=== PATIENT | male | born 1950 | race Caucasian/White ===

== ENCOUNTER → 2018-08-23 10:19 | Outpatient (CLI) | payer OTHER, SELFPAY ==
[2018-08-23 11:50] LABS: PSA,Total- Diagnostic 1.21 ng/mL (0.0-4.0)
== END ==
PROVIDERS: Referring Provider Nurse Practitioner Adult Health; Visit Provider Nurse Practitioner Adult Health
DX: N40.2 Nodular prostate without lower urinary tract symptoms (principal); N40.1 Benign prostatic hyperplasia with lower urinary tract symptoms
CPT/HCPCS: 36415; 84153

== ENCOUNTER → 2018-08-30 06:27 | Outpatient (CLI) | payer OTHER, SELFPAY ==
[2018-08-29 11:03] LABS: Creatinine, Serum 1.12 mg/dL (0.70-1.30); EST Glomerular Filtration Rate 69 mL/min (>60); Est Glom Filt Rate - Afr Amer 84 mL/min (>60)
--- NOTE | 2018-08-30 06:33 | MRI_ITS ---
STUDY: MR PELVIS WITH AND WITHOUT CONTRAST (PROSTATE) REASON FOR EXAM: Male, 68 years old. Nodular prostate, urinary flow problems TECHNIQUE: Standardized multiparametric prostate MRI with T1, T2, DWI/ADC sequences were obtained in 3 orthogonal planes, and dynamic contrast enhancement sequences. 10 ml of Gadavist contrast material was administered intravenously for the contrast portion of the examination. COMPARISON: None. FINDINGS: The prostate volume measures 35 mm3. The contours of the prostate gland are smooth. There is not mass effect on the bladder base. The transition zone is heterogenous. PI-RADS DWI score 2 - Hypointense within a BPH nodule on ADC. PI-RADS T2W score 2 - Circumscribed hypointense or heterogeneous encapsulated nodule(s) (BPH). Contrast enhancement (-) No early enhancement, or; diffuse enhancement so that margins do not correspond to a finding on T2WI and/or DWI, or; focal enhancement corresponding to a lesion demonstrating features of BPH on T2WI. The peripheral zone is heterogenous. PI-RADS DWI score 2 - Indistinct mildy hypointense on ADC. PI-RADS T2W score 2 - Linear, wedge-shaped, or diffuse mild hypointensity, usually with indistinct margin. Contrast enhancement (-) No early enhancement, or; diffuse enhancement so that margins do not correspond to a finding on T2WI and/or DWI, or; focal enhancement corresponding to a lesion demonstrating features of BPH on T2WI. The seminal vesicles demonstrate normal margins and T2 signal pattern. No mass lesion or invasion depicted. The rectoprostatic angles are normal. Urinary bladder is nondistended with diffuse circumferential wall thickening (artifactual nondistention versus true wall thickening). The vascular structures of the are normal. There is a small left and moderate right hydrocele, partially visualized. The visualized hollow viscus structures are normal. No bone marrow edema or mass lesion depicted. MRI/Pelvis W/WO Contrast IMPRESSION: 1. PIRADS v2 2015 -- 2 - Low (clinically significant cancer is unlikely). 2. Central gland BPH nodules. 3. Right larger than left hydrocele. 4. Circumferential wall thickening may be artifact of nondistention versus true wall thickening (muscular hyperplasia, cystitis or other etiology). Electronically Signed: Migue Jin MD at 8:55 EST , Service support ,
== END ==
PROVIDERS: Referring Provider Nurse Practitioner Adult Health; Visit Provider Nurse Practitioner Adult Health
DX: N40.2 Nodular prostate without lower urinary tract symptoms (principal)
CPT/HCPCS: 72197; 82565; A9585

== ENCOUNTER → 2018-09-19 16:51 | Outpatient (CLI) | payer OTHER, SELFPAY ==
[2016-01-02 02:44] VITALS: BMI 32.8
--- NOTE | 2018-09-19 08:00 | PROSBIL_PTH ---
PATIENT: ROC PERLA LOC: [facility] U#:[id number] AGE/SX: 75/M ROOM: RE09/19/[address]: Dr. Abdiaziz Sosa MD : 1950 BED: DIS: SPEC #: [id number] RECD: 09/19/18 13:00 STATUS: BRIAN CURT #: [id number] LEXIE: 09/19/18 08:[address]: Abdiaziz Sosa DEPT: SURGICAL PATHOLOGY RECD BY: Yajaira Atwood ENTERED: 09/20/18 11:18 SP TYPE: PROST BX SANCHO DR: Carmen Primary Care Phys Tissues: A - PROSTATE RIGHT B - PROSTATE RIGHT C - PROSTATE RIGHT D - PROSTATE LEFT E - PROSTATE LEFT F - PROSTATE LEFT Procedures: PROSTATE BX HEADER OPERATION: Prostate biopsy PRE-OP DIAGNOSIS: Elevated PSA TISSUE SUBMITTED: A - Right apex, B - Right mid, C - Right base, D - Left apex, E - Left mid, F - Left base MICROSCOPIC DIAGNOSIS A. Right prostate, apex, core biopsy: Focal high-grade prostatic intraepithelial neoplasia (HGPIN). Chronic inflammation. B. Right prostate, mid, core biopsy: Prostatic tissue, negative for malignancy. Acute and chronic inflammation. C. Right prostate, base, core biopsy: Prostatic tissue, negative for malignancy. Chronic inflammation. D. Left prostate, apex, core biopsy: Prostatic tissue, negative for malignancy. Moderate acute and chronic inflammation. E. Left prostate, mid, core biopsy: Prostatic tissue, negative for malignancy. Focal moderate acute and chronic inflammation, histiocytic reaction and foreign body giant cell reaction. F. Left prostate, base, core biopsy: Prostatic tissue, negative for malignancy. Acute and chronic inflammation and histiocytic reaction. SJ:rg 09/21/18 COMMENT Case has been reviewed in consultation with Dr. Clark who concurs with the above diagnosis. IDC:AM MICROSCOPIC DESCRIPTION Slides are reviewed. GROSS DESCRIPTION A - Received is one container designated prostate, right apex. The specimen consists of two elongated fragments of light hendrickson-white soft tissue measuring 0.8 and 1.3 cm in length and 0.1 cm in diameter. The specimen is totally submitted in one cassette. B - Received is one container designated prostate, right mid. The specimen consists of two elongated fragments of light hendrickson-white soft tissue measuring 1 and 1.2 cm in length and 0.1 cm in diameter. The specimen is totally submitted in one cassette. C - Received is one container designated prostate, right base. The specimen consists of two elongated fragments of light hendrickson-white soft tissue each measuring 1.3 cm in length and 0.1 cm in diameter. The specimen is totally submitted in one cassette. D - Received is one container designated prostate, left apex. The specimen consists of two elongated fragments of light hendrickson-white soft tissue each measuring 1.5 cm in length and 0.1 cm in diameter. The specimen is totally submitted in one cassette. E - Received is one container designated prostate, left mid. The specimen consists of two elongated fragments of light hendrickson-white soft tissue each measuring 2 cm in length and 0.1 cm in diameter. The specimen is totally submitted in one cassette. F - Received is one container designated prostate, left base. The specimen consists of two elongated fragments of light hendrickson-white soft tissue measuring 0.5 and 2 cm in length and 0.1 cm in diameter. The specimen is totally submitted in one cassette. / SJ:rg 09/20/18 TC:3 CPT: 91713 x6
== END ==
PROVIDERS: Referring Provider Urology; Visit Provider Urology
DX: R97.20 Elevated prostate specific antigen [PSA] (principal)
CPT/HCPCS: 88305; G0416

== ENCOUNTER 2021-10-02 08:43 | Outpatient (CLI) | payer MEDICARE, SELFPAY ==
[2021-10-02 10:06] LABS: PSA,Total - Annual Screen 0.28 ng/mL (0.00-4.00)
== END 2021-10-02 23:59 | disposition home or self-care (01) ==
LOC: LAB 08:46
PROVIDERS: PCP Family Medicine; Referring Provider Urology; Visit Provider Urology
DX: Z12.5 Encounter for screening for malignant neoplasm of prostate (principal)
CPT/HCPCS: 36415; 84153; G0103

== ENCOUNTER → 2022-01-20 | Outpatient (CLI) | payer MEDICARE, SELFPAY ==
--- NOTE | 2022-01-20 08:32 | EKG12_ITS ---
Test Reason : CHEST PAIN Blood Pressure : / mmHG Vent. Rate : 067 BPM Atrial Rate : 067 BPM P-R Int : 154 ms QRS Dur : 074 ms QT Int : 376 ms P-R-T Axes : -05 -01 030 degrees QTc Int : 397 ms Normal sinus rhythm Normal ECG Confirmed by SARI VERDUGO, MAYRA ([id number]), editor in chief newspaper ALEXANDREA FRAUSTO ([id number]) on 01/21/2022 12:44:07 PM Referred By: Angelica Sandy Confirmed By:MAYRA GUO MD
--- NOTE | 2022-01-20 08:35 | RAD_ITS ---
EXAM: XR CHEST, 2 VIEWS CLINICAL INDICATION: Dyspnea on exertion, chest tightness TECHNIQUE: Frontal and lateral views of the chest. This report was created using [employer] report generation technology. COMPARISON: None. FINDINGS: LUNGS AND PLEURAL SPACES: There is right middle lobe airspace disease. No pneumothorax. No effusion. HEART: Unremarkable. Cardiac silhouette not enlarged. MEDIASTINUM: Central airways and mediastinal contour are unremarkable. BONES/JOINTS: Unremarkable. SOFT TISSUES: Unremarkable. RAD/Chest PA and Lateral IMPRESSION: Right middle lobe airspace disease which may represent atelectasis or early pneumonia. Electronically Signed: Qamar Curtis MD at 2:19 EDT ,
[2022-01-20 09:18] LABS: Absolute Lymphocyte Count 1.49 X10^3/uL (0.83-4.51); Absolute Neutrophil Count 3.8 X10^3/uL (2.0-7.7); Basophil# 0.04 X10^3/uL; Basophil% 0.6 % (0-1); Eosinophils% 3.2 % (0-5); Hematocrit 39.7 % (40-54); Hemoglobin 13.3 g/dL (13.0-16.5); Lymphocyte # 1.49 X10^3/ul (0.83-4.51); Lymphocyte % 23.9 % (19-41); Mean Corp Hgb Conc 33.5 g/dL (32-36); Mean Corpuscular Hgb 32.4 pg (27.0-32.0); Mean Corpuscular Volume 96.6 fL (80-94); Mean Platelet Vol. 8.9 fl (6.2-12.0); Monocyte# 0.71 X10^3/uL; Monocyte% 11.4 % (0-10); NRBC Flagged by Analyzer 0 % (0-5); Neutrophil # 3.79 X10^3/uL (2.7-7.7); Neutrophil % 60.7 % (47-70); Platelet Count 233 K/mm3 (150-450); RBC Distribution Width CV 12.1 % (11.6-14.6); RBC Distribution Width SD 42.9 fl (35.1-43.9); Red Blood Count 4.11 M/mm3 (4.6-6.2); White Blood Count 6.2 K/mm3 (4.4-11.0)
[2022-01-20 10:00] LABS: Vitamin D,25 Hydroxy 43.2 ng/mL
[2022-01-20 10:04] LABS: AST(SGOT) 21 U/L (15-37); Alanine Aminotransfer ALT/SGPT 21 U/L (16-61); Albumin, Serum 3.6 g/dL (3.2-5.0); Alkaline Phosphatase 82 U/L (45-117); Anion Gap 4 (5-15); BUN 16 mg/dL (7-18); BUN/Creat Ratio 16.7 RATIO (10-20); Chloride 107 mmol/L (98-107); Cholesterol 150 mg/dL (200); Creatinine, Serum 0.96 mg/dL (0.70-1.30); EST Glomerular Filtration Rate 82 mL/min (>60); Est Glom Filt Rate - Afr Amer 99 mL/min (>60); Globulin 3.6 g/dL (2.2-4.2); Glucose 93 mg/dL (74-106); High Density Lipoprotein 42 mg/dL; Potassium 4.2 mmol/L (3.5-5.1); Protein, Total 7.2 g/dL (6.4-8.2); Sodium Level 139 mmol/L (136-145); Thyroid Stim Hormone (TSH) 1.92 uIU/mL (0.358-3.74); Triglycerides 189 mg/dL; Very Low Density Lipoprotein 38 mg/dL (5-40)
== END | disposition home or self-care (01) ==
PROVIDERS: PCP Internal Medicine; Referring Provider Internal Medicine; Visit Provider Internal Medicine
DX: R07.89 Other chest pain (principal); Z76.89 Persons encountering health services in other specified circumstances; R53.83 Other fatigue; R06.09 Other forms of dyspnea; M17.0 Bilateral primary osteoarthritis of knee; E55.9 Vitamin D deficiency, unspecified
CPT/HCPCS: 36415; 71046; 80053; 80061; 82306; 84443; 85025; 93005

== ENCOUNTER → 2022-01-20 | Outpatient (CLI) | payer MEDICARE, SELFPAY | END | disposition home or self-care (01) | LOC: CVS 08:34 | PROVIDERS: PCP Internal Medicine; Referring Provider Internal Medicine; Visit Provider Internal Medicine | DX: R07.89 Other chest pain (principal); R06.00 Dyspnea, unspecified; R53.83 Other fatigue ==

== ENCOUNTER → 2022-02-17 | Outpatient (CLI) | payer MEDICARE, SELFPAY ==
--- NOTE | 2022-02-17 16:22 | STRESSREP_ITS ---
Stress Test Report Date: 02-17-2022 Procedure: Exercise tolerance test/imaging study Indications: Shortness of breath/dyspnea on exertion; chest tightness; fatigue Consent: Per the patient Procedure: The patient exercised on a West protocol for 3 minutes completing Stage I achieving a peak heart rate of 146 bpm (98% predicted maximal heart rate) with a peak blood pressure 160/78 mmHg and a peak MET capacity of 4 METs. The baseline ECG demonstrated normal sinus rhythm. The peak exercise ECG demonstrated somatic/motion artifact with no obvious ECG changes. There was a rare PAC during recovery. The functional capacity was considered decreased. There was no complaint of chest discomfort during exercise or recovery. The examination was discontinued secondary to dyspnea. Impression: 1. Technically adequate (percent predicted maximal heart rate greater than 85%) exercise tolerance test 2. Peak exercise ECG with somatic/motion artifact with no obvious ECG changes 3. There was a rare PAC during recovery 4. Nuclear images pending Myocardial perfusion imaging study: Technique: The patient was injected with 11.6 mCi of technetium 99m Cardiolite and subsequently rest SPECT Cardiolite nuclear imaging was obtained in the horizontal long, vertical long, and short axis views. The patient exercised on a West protocol for 3 minutes completing Stage I achieving a peak heart rate of 146 bpm (98% predicted maximal heart rate) with a peak blood pressure 160/78 mmHg and a peak MET capacity of 4 METs. The patient was injected with 34.8 mCi of technetium 99m Cardiolite and subsequently stress SPECT Cardiolite nuclear imaging was obtained in the horizontal long, vertical long, and short axis views. A gated Cardiolite study at peak stress was obtained. Interpretation: Rest and stress SPECT Cardiolite nuclear imaging status post realignment, normalization, and attenuation correction, demonstrates the appearance of relative uniform tracer uptake and myocardial perfusion appearing within normal limits. There is end systolic thickening and brightening. The gated Cardiolite study demonstrates myocardial thickening and inward wall motion. The reported LVEF is 69%. Impression: 1. Rest and stress SPECT Cardiolite nuclear imaging demonstrate relative uniform tracer uptake and myocardial perfusion appearing within normal limits. 2. The gated Cardiolite study reports an LVEF of 69%. This note was generated with [employer] software. It may contain incorrect words, spelling, and punctuation that were not noted in checking the note before signing.
== END | disposition home or self-care (01) ==
PROVIDERS: PCP Internal Medicine; Referring Provider Internal Medicine; Visit Provider Internal Medicine
DX: R07.89 Other chest pain (principal); R06.09 Other forms of dyspnea; R53.83 Other fatigue
CPT/HCPCS: 78452; 93017; A9500; A4216

== ENCOUNTER → 2022-10-08 | Outpatient (CLI) | payer MEDICARE, SELFPAY ==
[2022-10-08 11:08] LABS: PSA,Total - Annual Screen 1.25 ng/mL (0.00-4.00)
== END | disposition home or self-care (01) ==
PROVIDERS: PCP Internal Medicine; Referring Provider Internal Medicine; Visit Provider Urology
DX: Z12.5 Encounter for screening for malignant neoplasm of prostate (principal)
CPT/HCPCS: 36415; 84153; G0103

== ENCOUNTER → 2023-03-16 | Outpatient (CLI) | payer MEDICARE, SELFPAY ==
[2023-03-16 11:04] LABS: Absolute Lymphocyte Count 1.37 X10^3/uL (0.83-4.51); Absolute Neutrophil Count 4.1 X10^3/uL (2.0-7.7); Basophil# 0.05 X10^3/uL; Basophil% 0.7 % (0-1); Eosinophils% 5.9 % (0-5); Hematocrit 39.1 % (40-54); Hemoglobin 12.9 g/dL (13.0-16.5); Lymphocyte # 1.37 X10^3/ul (0.83-4.51); Lymphocyte % 20.3 % (19-41); Mean Corpuscular Hgb 32.7 pg (27.0-32.0); Mean Platelet Vol. 8.7 fl (6.2-12.0); Monocyte# 0.86 X10^3/uL; Monocyte% 12.7 % (0-10); NRBC Flagged by Analyzer 0 % (0-5); Neutrophil # 4.06 X10^3/uL (2.7-7.7); Neutrophil % 60.3 % (47-70); Platelet Count 256 K/mm3 (150-450); RBC Distribution Width CV 12.5 % (11.6-14.6); Red Blood Count 3.95 M/mm3 (4.6-6.2); White Blood Count 6.8 K/mm3 (4.4-11.0)
[2023-03-16 11:42] LABS: CRP 6.12 mg/L (0.0-3.0); Uric Acid 8.6 mg/dL (3.5-7.2)
== END | disposition home or self-care (01) ==
LOC: LAB 10:19
PROVIDERS: PCP Internal Medicine; Referring Provider Orthopaedic Surgery Sports Medicine; Visit Provider Orthopaedic Surgery Sports Medicine
DX: R53.83 Other fatigue (principal); M10.9 Gout, unspecified; M79.641 Pain in right hand
CPT/HCPCS: 36415; 84550; 85025; 86140

== ENCOUNTER 2023-04-02 15:02 | Emergency (ER) | payer MEDICARE, SELFPAY ==
[2023-04-02 15:06] VITALS: BP 148/94; PULSE 98; RESP 18; TEMP 36.4; O2SAT 98; BMI 29.4
--- NOTE | 2023-04-02 16:25 | EDS_ITS ---
HPI History of Present Illness Chief Complaint: General Illness Narrative Narrative: 73-year-old male presenting with lightheadedness which has had for few days now. Patient states that he does not feel like it is vertiginous in nature. He also notes that he is a little bit short of breath with exertion. He states that he usually drinks about 8 beers a day and some wine. He states he starts about noon while he is out in the yard. He states he carries a beer around with the most of the day and he also carries water with him. When he passes the refrigerator and then he will grab another beer. He states has been doing this for several months. He likes to drink. He does not want detox. [facility] Medical History Arthritis Bone fracture Gout High cholesterol High triglycerides Migraines Right femoral fracture Right hand pain Home Medications acetaminophen 650 mg tablet,extended release (Tylenol Arthritis Pain) 650 mg PO Q8H PRN fever or pain 01/19/22 [History Last Taken Unknown] ascorbate calcium (vitamin C) 500 mg tablet See Rx Instructions PO DAILY 01/19/22 [History Last Taken Unknown] aspirin 325 mg tablet 325 mg PO .COMPLEX 01/19/22 [History Last Taken Unknown] calcium carbonate 600 mg calcium (1,500 mg) tablet (Calcium) 600 mg PO DAILY 01/19/22 [History Last Taken Unknown] cholecalciferol (vitamin D3) 50 mcg (2,000 unit) capsule 50 mcg PO DAILY 01/19/22 [History Last Taken Unknown] ferrous sulfate 325 mg (65 mg iron) tablet 325 mg PO DAILY 01/19/22 [History Last Taken Unknown] hydrocortisone 2.5 % topical cream 1 applic topical BID PRN skin irritation #30 grams 01/19/22 [Rx Last Taken Unknown] multivitamin 1 tab PO DAILY 01/19/22 [History Last Taken Unknown] tamsulosin 0.4 mg capsule 0.4 mg PO QHS 01/19/22 [History Last Taken Unknown] zinc See Rx Instructions PO .COMPLEX 01/19/22 [History Last Taken Unknown] simvastatin 40 mg tablet 40 mg PO QHS #90 tabs 05/04/22 [Rx Last Taken Unknown] Allergy/AdvReac Type Severity Reaction Status Date / Time No Known Allergies Allergy Verified 04/02/23 15:06 Family History Father Arthritis Myocardial infarction Heart disease High cholesterol Respiratory disease Mother Arthritis Colon cancer Heart disease Osteoporosis Social History Smoking Status: Former smoker ROS ROS ED ROS Narrative Lightheadedness Constitutional Constitutional ED: Denies chills or fever(s) ENT ENT ED: Denies rhinorrhea or sore throat Cardiovascular Cardiovascular: Denies chest pain or palpitations Respiratory/Chest Respiratory/Chest: Reports dyspnea and dyspnea on exertion Gastrointestinal Gastrointestinal: Denies abdominal pain or nausea Genitourinary Genitourinary ED: Denies dysuria or hematuria Musculoskeletal Musculoskeletal: Denies arthralgias or back pain Integumentary Denies abscess or Abrasions Neurologic Neurologic: Denies headache(s) or paresthesias Psychiatric Psychiatric: Denies anxiety or depression EXAM Physical Exam Const Vital Signs: 04/02/23 15:06 04/02/23 16:14 04/02/23 16:50 Temperature 97.5 F L Temperature Source Temporal Pulse Rate 98 70 Respiratory Rate 18 16 Respiratory Pattern Normal Blood Pressure 148/94 H 158/86 H Blood Pressure Mean 112 110 Pulse Ox 98 93 Oxygen Delivery Method Room Air Room Air Positive well nourished General Appearance ED: NAD HEENT Reports moist mucous membranes Eyes PERRL and EOMs intact bilaterally Neck no lymphadenopathy Chest Wall inspection of chest normal and palpation of chest normal Resp normal respiratory effort and clear to auscultation bilaterally Auscultation: Negative for rales, rhonchi or wheezes Cardio regular rate and regular rhythm GI normal to inspection, nondistended, normoactive bowel sounds Back/Spine no CVA tenderness Neuro oriented x3 and CN's II-XII intact bilaterally Sensorium / Orientation: alert Motor Exam: strength 5/5 throughout Psych mental status grossly normal Skin no rashes or lesions noted and no wounds MDM MDM MDM Narrative Medical decision making narrative: Differential includes but is not limited to ACS, pneumonia , muscle strain, costochondritis, dehydration, anemia, GI bleed, electrolyte abnormalities. CBC will be obtained to assess white blood cell count, hemoglobin, platelets. BMP t o assess renal function and electrolytes. High-sensitivity troponin EKG to assess for ischemia and dysrhythmia. Chest x-ray to rule out pneumonia. BNP to assess for CHF. TSH to assess Royd. Advised EtOH to assess for alcohol. CBC shows a normal leukocytosis at 11.5. Hemoglobin stable 13.2. Platelets are normal at 191. Renal function and electrolytes unremarkable. High-sensitivity troponin is 7. EKG normal sinus rhythm with a ventricular of 64 bpm without sign of ischemic change or ectopy on my interpretation. Chest x-ray on my interpretation shows no acute process. The radiologist interprets this as unchanged infiltrates. EtOH negative. PE normal. TSH normal. Patient's work- up ultimately unremarkable and he is counseled on all findings. I recommend that he limit alcohol use. He states he does not need detox. He is counseled to follow-up with his PCP. Impression: 1. EtOH abuse 2. Dyspnea 3. Lightheadedness Lab Data Attestation: I reviewed the patient's lab results. Labs: Laboratory Results - last 24 hr 04/02/23 16:50 WBC 7.5 RBC 4.09 L Hgb 13.2 Hct 39.7 L MCV 97.1 H MCH 32.3 H MCHC 33.2 RDW Std Deviation 43.6 RDW Coeff of Eloise 12.2 Plt Count 191 MPV 9.2 Immature Gran % (Auto) 0.100 Neut % (Auto) 68.7 Lymph % (Auto) 15.2 L Sherman % (Auto) 11.8 H Eos % (Auto) 3.7 Baso % (Auto) 0.5 Absolute Neuts (auto) 5.2 Absolute Lymphs (auto) 1.14 Nucleated RBC % 0 Sodium 139 Potassium 4.0 Chloride 108 H Carbon Dioxide 26.0 Anion Gap 5 BUN 11 Creatinine 0.88 Estim Creat Clear Calc 66.46 Est GFR (MDRD) Af Amer 108 Est GFR (MDRD) Non-Af 90 BUN/Creatinine Ratio 12.5 Glucose 101 Calcium 8.7 Troponin I High Sens 7 B-Natriuretic Peptide 3.9 TSH 1.25 Ethyl Alcohol < 3.0 Radiography Diagnostic Testing: Clinical Impression(s) from Imaging Studies Chest X-Ray 04/02/23 16:30 IMPRESSION: Mild bibasilar interstitial infiltrates Electronically Signed: Hola Orta MD at 16:48 EDT Reading Location ID and State: [facility] / [place] Tel , Service support , Discharge Plan Triage Chief Complaint: General Illness ED Provider: Wyatt Johnson Dx/Rx/DC Orders Clinical Impression: Dyspnea on exertion Instructions: ED Dyspnea, ED Alcohol Abuse Prescriptions: No Action hydrocortisone 2.5 % cream 1 applic topical BID PRN (Reason: skin irritation) Qty: 30 1RF tamsulosin 0.4 mg capsule 0.4 mg PO QHS ferrous sulfate 325 mg (65 mg iron) tablet 325 mg PO DAILY ascorbate calcium (vitamin C) 500 mg tablet See Rx Instructions PO DAILY Rx Instructions: 500mg 1/2 tab orally daily; calcium carbonate [Calcium 600] 600 mg calcium (1,500 mg) tablet 600 mg PO DAILY cholecalciferol (vitamin D3) 50 mcg (2,000 unit) capsule 50 mcg PO DAILY multivitamin Tablet 1 tab PO DAILY zinc See Rx Instructions PO .COMPLEX Rx Instructions: orally 3x weekly; aspirin 325 mg tablet 325 mg PO .COMPLEX Rx Instructions: 325 mg orally 3x week; acetaminophen [Tylenol Arthritis Pain] 650 mg tablet extended release 650 mg PO Q8H PRN (Reason: fever or pain) simvastatin 40 mg tablet 40 mg PO QHS Qty: 90 3RF Primary Care Provider: Angelica Sandy Referrals: Angelica Sandy MD [Primary Care Provider] - Disposition Disposition: Home, Self Care
--- NOTE | 2023-04-02 16:25 | EKG12_ITS ---
Test Reason : GEN ILLNESS Blood Pressure : / mmHG Vent. Rate : 064 BPM Atrial Rate : 064 BPM P-R Int : 158 ms QRS Dur : 082 ms QT Int : 388 ms P-R-T Axes : 002 -02 025 degrees QTc Int : 400 ms Normal sinus rhythm Normal ECG Confirmed by SERJIO VERDUGO, DAKOTA ([id number]), field map editor MARILIA NYE ([id number]) on 04/06/2023 11:52:44 AM Referred By: JAYRO Confirmed By:DAKOTA BASSETT MD
--- NOTE | 2023-04-02 16:30 | RAD_ITS ---
STUDY: X-RAY CHEST REASON FOR EXAM: Male, 73 years old. chest pain TECHNIQUE: Single frontal view of the chest. COMPARISON: January 20, 2022 FINDINGS: Mild bibasilar interstitial infiltrates unchanged. There is no demonstrated pleural abnormality. Normal size heart. Normal mediastinum and thao. Normal visualized pulmonary arteries. Normal visualized aortic arch and descending thoracic aorta. Normal visualized thoracic spine. Normal visualized ribs, clavicles, and shoulders. There is no demonstrated abnormality of the visualized soft tissue structures of the upper abdomen. RAD/Chest 1 View (Portable) IMPRESSION: Mild bibasilar interstitial infiltrates Electronically Signed: Hola Orta MD at 16:48 EDT ,
[2023-04-02 16:50] VITALS: BP 158/86; PULSE 70; RESP 16; O2SAT 93
[2023-04-02 17:19] LABS: Absolute Lymphocyte Count 1.14 X10^3/uL (0.83-4.51); Absolute Neutrophil Count 5.2 X10^3/uL (2.0-7.7); Basophil# 0.04 X10^3/uL; Basophil% 0.5 % (0-1); Eosinophil# 0.28 X10^3/uL; Eosinophils% 3.7 % (0-5); Hematocrit 39.7 % (40-54); Hemoglobin 13.2 g/dL (13.0-16.5); Lymphocyte # 1.14 X10^3/ul (0.83-4.51); Lymphocyte % 15.2 % (19-41); Mean Corp Hgb Conc 33.2 g/dL (32-36); Mean Corpuscular Hgb 32.3 pg (27.0-32.0); Mean Corpuscular Volume 97.1 fL (80-94); Mean Platelet Vol. 9.2 fl (6.2-12.0); Monocyte# 0.89 X10^3/uL; Monocyte% 11.8 % (0-10); NRBC Flagged by Analyzer 0 % (0-5); Neutrophil # 5.16 X10^3/uL (2.7-7.7); Neutrophil % 68.7 % (47-70); Platelet Count 191 K/mm3 (150-450); RBC Distribution Width CV 12.2 % (11.6-14.6); RBC Distribution Width SD 43.6 fl (35.1-43.9); Red Blood Count 4.09 M/mm3 (4.6-6.2); White Blood Count 7.5 K/mm3 (4.4-11.0)
[2023-04-02 17:38] LABS: Anion Gap 5 (5-15); BUN 11 mg/dL (7-18); BUN/Creat Ratio 12.5 RATIO (10-20); Calcium,Total 8.7 mg/dL (8.5-10.1); Chloride 108 mmol/L (98-107); Creatinine, Serum 0.88 mg/dL (0.70-1.30); EST Glomerular Filtration Rate 90 mL/min (>60); Est Glom Filt Rate - Afr Amer 108 mL/min (>60); Estimated Creatinine Clearance 66.46 ml/min; Glucose 101 mg/dL (74-106); Sodium Level 139 mmol/L (136-145); Thyroid Stim Hormone (TSH) 1.25 uIU/mL (0.358-3.74); Troponin-I HS 7 pg/mL (3.0-78.0)
[2023-04-02 17:42] LABS: BNP,B-Type NATRIURETIC PEPTIDE 3.9 pg/mL (0-100)
[2023-04-02 18:34] LABS: Alcohol, Blood (Medical)-Serum < 3.0 mg/dL
== END 2023-04-02 18:55 | disposition home or self-care (01) ==
PROVIDERS: Emergency Provider Student in an Organized Health Care Education/Training Program; PCP Internal Medicine; Visit Provider Student in an Organized Health Care Education/Training Program
DX: F10.10 Alcohol abuse, uncomplicated (principal); Y90.0 Blood alcohol level of less than 20 mg/100 ml; R42 Dizziness and giddiness; R06.09 Other forms of dyspnea; Z87.891 Personal history of nicotine dependence
CPT/HCPCS: 71045; 80048; 82077; 83880; 84443; 84484; 85025; 87428; 93005; 99284

== ENCOUNTER → 2023-04-14 | Outpatient (CLI) | payer MEDICARE, SELFPAY ==
[2023-04-14 10:21] LABS: ALB/GLOB Ratio 0.8 RATIO (0.9-2.4); AST(SGOT) 18 U/L (15-37); Alanine Aminotransfer ALT/SGPT 24 U/L (16-61); Albumin, Serum 3.4 g/dL (3.2-5.0); Alkaline Phosphatase 100 U/L (45-117); Anion Gap 3 (5-15); BUN 12 mg/dL (7-18); BUN/Creat Ratio 13.1 RATIO (10-20); Chloride 109 mmol/L (98-107); Cholesterol 147 mg/dL (200); Creatinine, Serum 0.91 mg/dL (0.70-1.30); EST Glomerular Filtration Rate 86 mL/min (>60); Est Glom Filt Rate - Afr Amer 104 mL/min (>60); Globulin 4.1 g/dL (2.2-4.2); Glucose 98 mg/dL (74-106); High Density Lipoprotein 40 mg/dL; Potassium 4.2 mmol/L (3.5-5.1); Protein, Total 7.5 g/dL (6.4-8.2); Sodium Level 140 mmol/L (136-145); Triglycerides 135 mg/dL; Uric Acid 7.9 mg/dL (3.5-7.2); Very Low Density Lipoprotein 27 mg/dL (5-40)
== END | disposition home or self-care (01) ==
LOC: LAB 08:51
PROVIDERS: PCP Internal Medicine; Visit Provider Internal Medicine
DX: R53.83 Other fatigue (principal); E78.5 Hyperlipidemia, unspecified; M17.0 Bilateral primary osteoarthritis of knee; R07.89 Other chest pain
CPT/HCPCS: 36415; 80053; 80061; 84550

== ENCOUNTER → 2023-08-25 | Outpatient (CLI) | payer MEDICARE, SELFPAY ==
[2023-08-25 10:43] LABS: Absolute Lymphocyte Count 1.41 X10^3/uL (0.83-4.51); Basophil# 0.04 X10^3/uL; Basophil% 0.4 % (0-1); Eosinophil# 0.11 X10^3/uL; Eosinophils% 1.1 % (0-5); Hematocrit 40.4 % (40-54); Hemoglobin 13.6 g/dL (13.0-16.5); Lymphocyte # 1.41 X10^3/ul (0.83-4.51); Lymphocyte % 14.6 % (19-41); Mean Corp Hgb Conc 33.7 g/dL (32-36); Mean Corpuscular Hgb 31.9 pg (27.0-32.0); Mean Corpuscular Volume 94.8 fL (80-94); Mean Platelet Vol. 9.1 fl (6.2-12.0); Monocyte# 1.06 X10^3/uL; NRBC Flagged by Analyzer 0 % (0-5); Neutrophil # 7.01 X10^3/uL (2.7-7.7); Neutrophil % 72.6 % (47-70); Platelet Count 218 K/mm3 (150-450); RBC Distribution Width CV 12.1 % (11.6-14.6); RBC Distribution Width SD 42.4 fl (35.1-43.9); Red Blood Count 4.26 M/mm3 (4.6-6.2); White Blood Count 9.7 K/mm3 (4.4-11.0)
[2023-08-25 10:54] LABS: Erythrocyte Sedimentation Rate 31 mm/hr (0-20)
[2023-08-25 11:29] LABS: ALB/GLOB Ratio 0.9 RATIO (0.9-2.4); AST(SGOT) 20 U/L (15-37); Alanine Aminotransfer ALT/SGPT 18 U/L (16-61); Albumin, Serum 3.4 g/dL (3.2-5.0); Alkaline Phosphatase 84 U/L (45-117); Anion Gap 2 (5-15); BUN 15 mg/dL (7-18); BUN/Creat Ratio 17.7 RATIO (10-20); Calcium,Total 8.9 mg/dL (8.5-10.1); Chloride 108 mmol/L (98-107); Creatinine, Serum 0.85 mg/dL (0.70-1.30); EST Glomerular Filtration Rate 94 mL/min (>60); Est Glom Filt Rate - Afr Amer 114 mL/min (>60); Globulin 3.9 g/dL (2.2-4.2); Glucose 95 mg/dL (74-106); Potassium 4.1 mmol/L (3.5-5.1); Protein, Total 7.3 g/dL (6.4-8.2); Sodium Level 139 mmol/L (136-145); Uric Acid 7.1 mg/dL (3.5-7.2)
--- OUTSIDE RECORDS SUMMARY | 2023-08-25 19:31 | XMS RPT_ITS | CCD ---
Author Name Unknown Address [address] [place] [address] Organization [facility] Care Team Providers Care Television Presenter Name Role Phone EDILMA VERDUGO, BENY Henderson Primary Care Physician Medications Current Medications Medication Drug Class(es) Dates Sig (Normalized) Sig (Original) Aspirin (1 source) Platelet Aggregation Inhibitor, Nonsteroidal Anti-inflammatory Drug Start: 04-24-2019 take 1 mg by mouth once daily aspirin 325 mg oral delayed release tablet mg = tab(s), Oral, qDay, 0 Refill(s) Start Date: 04/24/19 Status: Ordered ferrous sulfate (1 source) Start: 04-24-2019 ferrous sulfate ferrous sulfate, 0 Refill(s) Start Date: 04/24/19 Status: Ordered Hydrocortisone (1 source) Corticosteroid Start: 03-26-2020 hydrocortisone 2.5% topical cream Apply 1 marla, Topical, BID, # 30 gram(s), 3 Refill(s), Pharmacy: [facility]/pharmacy #[id number], 165, cm, 04/24/19 13:47:00 EDT, Height, 95.7, kg, 04/24/19 13:47:00 EDT, Dosing Weight Start Date: 03/26/20 Status: Ordered simvastatin 40 mg oral tablet (2 sources) HMG-CoA Reductase Inhibitor Start: 04-25-2019 take 1 tablet by mouth at bedtime simvastatin 40 mg oral tablet See Instructions, TAKE 1 TABLET BY MOUTH AT BEDTIME, # 90 tab(s), 3 Refill(s), Pharmacy: [facility] ST[id number], 165, cm, 04/29/20 8:38:00 EST, Height, kg, 04/29/20 8:38:00 EST, Dosing Weight Start Date: 04/29/20 Status: Ordered tamsulosin hydrochloride 0.4 mg oral capsule (1 source) alpha-Adrenergic Afia Start: 04-24-2019 tamsulosin 0.4 mg oral capsule Dose : 0.4 mg = 1 cap(s), Oral, qDay, # 30 cap(s), 0 Refill(s) Start Date: 04/24/19 Status: Ordered tylemol arthritis (1 source) Start: 04-24-2019 tylemol arthritis tylemol arthritis, 0 Refill(s) Start Date: 04/24/19 Status: Ordered Vitamin D with Minerals oral tablet (1 source) Start: 04-24-2019 take 1 tablet by mouth once daily Vitamin D with Minerals oral tablet Dose = 1 tab(s), Oral, qDay, # 30 tab(s), 0 Refill(s) Start Date: 04/24/19 Status: Ordered zinc acetate 50 mg oral capsule (1 source) Start: 04-24-2019 zinc (as acetate) 50 mg oral capsule Dose : 50 mg = 1 cap(s), Oral, TID, # 250 cap(s), 0 Refill(s) Start Date: 04/24/19 Status: Ordered Problems Problem Classification Problem Date Documented Da te Episodic/Chronic Disorders of lipid metabolis m (1 source) Hyperlipidemia 03-06-2021 Chronic Results Test Name Value Interpretation Reference Range Facil ity Encounters Encounter Date Encounter Type Care Provider Facility Start: 04-21-2021 End: 04-21-2021 Patient encounter procedure BENY FRANCE MD [facility] Procedures Date Procedure Procedure Detail Performing Clinician Start: 08-28-2018 Prostate biopsy rositap le (specimen) BENY FRANCE MD Start: 07-30-2012 Cyst of eyelid (disorder) BENY FRANCE MD Immunizations Immunization Date Immunization Notes Care Provider Laxmi mack 03-29-2020 influenza virus vaccine, unspecified formulation BENY FRANCE MD [facility] Social History Date Type Detail Facility Start: 04-24-2019 Never smoked t obacco (finding) [facility] Sex Assigned At Male [facility] Evaluation + Plan note Note Date & Type Note Facility Evaluation + Plan note Future Appointments Appointment Date:04/30/2021 07:50:00 AM Scheduled Provider:BENY FRANCE MD Location:[facility] Appointment Type:[facility] Medicare [facility] Hospital course Narrative Note Date & Type Note Facility Hospital course Narrative No data available for this section [facility] Hospital Discharge instructions Note Date & Type Note Facility Hospital Discharge instructions No data available for this section [facility] Summary Purpose Family History No Family History Records Found Advance Directives No Advanced Directives Records Found Additional Source Comments (unrecognized sect ion and content) No Status Records Found INFORMATION SOURCE (unrecogn ized section and content) FOR RECORDS PERTAINING TO PATIENTS WHO ARE OR HAVE BEEN ENROLLED IN A CHEMICAL DEPENDENCY/SUBSTANCEABUSE PROGRAM, SOME INFORMATION MAY BE OMITTED. This clinical summary was aggregated from multiple sources. Caution should be exercised in using it in the provision of clinical care. This summary normalizes information from multiple sources, and as a consequence, information in this document may materially change the coding, format and clinical context of patient data. In addition, data may be omitted in some cases. CLINICAL DECISIONS SHOULD BE BASED ON THE PRIMARY CLINICAL RECORDS. [facility]. provides no warranty or guarantee of the accuracy or completeness of information in this document.
== END | disposition home or self-care (01) ==
LOC: LAB 10:17
PROVIDERS: PCP Internal Medicine; Referring Provider Internal Medicine; Visit Provider Internal Medicine
DX: R53.83 Other fatigue (principal); M10.9 Gout, unspecified
CPT/HCPCS: 36415; 80053; 84550; 85025; 85652; 86140

== ENCOUNTER → 2023-10-12 | Outpatient (CLI) | payer MEDICARE, SELFPAY ==
[2023-10-12 10:55] LABS: PSA,Total - Annual Screen 0.55 ng/mL (0.00-4.00)
== END | disposition home or self-care (01) ==
LOC: LAB 10:02
PROVIDERS: PCP Internal Medicine; Referring Provider Urology; Visit Provider Urology
DX: Z12.5 Encounter for screening for malignant neoplasm of prostate (principal)
CPT/HCPCS: 36415; 84153; G0103

== ENCOUNTER → 2023-11-26 | Outpatient (CLI) | payer MEDICARE, SELFPAY | END | disposition home or self-care (01) | PROVIDERS: PCP Internal Medicine; Visit Provider Internal Medicine | DX: R19.7 Diarrhea, unspecified (principal); K58.9 Irritable bowel syndrome, unspecified | CPT/HCPCS: 82705; 83630; 83993 ==

== ENCOUNTER → 2024-11-08 | Outpatient (CLI) | payer MEDICARE, SELFPAY ==
--- NOTE | 2024-11-08 08:28 | RAD_ITS ---
EXAM: XR Right Foot Complete, 3 or More Views CLINICAL INDICATION: RIGHT FOOT PAIN, 4 TH DIGIT, DISTAL PAIN TECHNIQUE: Frontal, lateral and oblique views of the right foot. COMPARISON: No relevant prior studies available. FINDINGS: BONES/JOINTS: Moderate intertarsal degenerative changes. No acute fracture. No dislocation. SOFT TISSUES: Soft tissue swelling. No radiopaque foreign body. RAD/Foot min 3 Views IMPRESSION: Degenerative changes as above. Reading Location: [facility]
[2024-11-08 08:54] LABS: Absolute Lymphocyte Count 1.44 X10^3/uL (0.83-4.51); Absolute Neutrophil Count 4.3 X10^3/uL (2.0-7.7); Basophil# 0.04 X10^3/uL; Basophil% 0.6 % (0-1); Hematocrit 40.9 % (40-54); Lymphocyte # 1.44 X10^3/ul (0.83-4.51); Mean Corp Hgb Conc 34.2 g/dL (32-36); Mean Corpuscular Hgb 32.3 pg (27.0-32.0); Mean Corpuscular Volume 94.2 fL (80-94); Mean Platelet Vol. 9.3 fl (6.2-12.0); Monocyte# 0.57 X10^3/uL; Monocyte% 8.7 % (0-10); NRBC Flagged by Analyzer 0 % (0-5); Neutrophil % 65.5 % (47-70); Platelet Count 196 K/mm3 (150-450); RBC Distribution Width CV 12.4 % (11.6-14.6); RBC Distribution Width SD 43.2 fl (35.1-43.9); Red Blood Count 4.34 M/mm3 (4.6-6.2); White Blood Count 6.6 K/mm3 (4.4-11.0)
[2024-11-08 09:02] LABS: Erythrocyte Sedimentation Rate 11 mm/hr (0-20)
[2024-11-08 10:19] LABS: ALB/GLOB Ratio 1.4 RATIO (0.9-2.4); AST(SGOT) 26 U/L (<=37); Alanine Aminotransfer ALT/SGPT 18 U/L (<=46); Albumin, Serum 4.1 g/dL (3.4-4.8); Alkaline Phosphatase 88 U/L (40-129); Anion Gap 10 (5-15); BUN 15 mg/dL (4-19); BUN/Creat Ratio 19.4 RATIO (10-20); Calcium,Total 9.4 mg/dL (7.6-11.0); Carbon Dioxide 24.5 mmol/L (21.0-32.0); Chloride 105 mmol/L (98-108); Cholesterol 132 mg/dL (<=200); Creatinine, Serum 0.79 mg/dL (0.70-1.20); EST Glomerular Filtration Rate 93 (>60); Globulin 2.8 g/dL (2.2-4.2); Glucose 99 mg/dL (70-99); High Density Lipoprotein 40 mg/dL; Low Density Lipoprotein Calc. 80 mg/dL; PSA,Total - Annual Screen 0.31 ng/mL (0.02-4.00); Potassium 4.6 mmol/L (3.3-5.1); Protein, Total 6.9 g/dL (5.9-8.4); Sodium Level 140 mmol/L (133-145); Triglycerides 57 mg/dL; Very Low Density Lipoprotein 11 mg/dL (5-40); Vitamin D,25 Hydroxy 53.6 ng/mL (30-100); cholesterol:hdl ratio screen 3.28
[2024-11-08 10:28] LABS: CRP < 3.00 mg/L (0.0-3.0); Magnesium 2.2 mg/dL (1.5-2.2); Uric Acid 7.1 mg/dL (3.5-7.2)
== END | disposition home or self-care (01) ==
LOC: LAB 08:02
PROVIDERS: PCP Internal Medicine; Referring Provider Internal Medicine; Visit Provider Internal Medicine
DX: M79.671 Pain in right foot (principal); R39.9 Unspecified symptoms and signs involving the genitourinary system; M10.9 Gout, unspecified; E78.5 Hyperlipidemia, unspecified; E55.9 Vitamin D deficiency, unspecified; Z13.220 Encounter for screening for lipoid disorders; Z12.5 Encounter for screening for malignant neoplasm of prostate
CPT/HCPCS: 36415; 73630; 80053; 80061; 82306; 83735; 84153; 84550; 85025; 85652; 86140; G0103

== ENCOUNTER → 2024-12-22 | Outpatient (CLI) | payer MEDICARE, SELFPAY ==
--- NOTE | 2024-12-22 08:01 | ECHOD_ITS ---
Reason For Study Reason For Study: PALPITATIONS Procedure This was a 2D Doppler, Color Flow transthoracic echocardiogram. Exam performed in department. Left Ventricle Normal size and thickness. The LV ejection fraction is 65 %. Normal diastology for age. Right Ventricle Normal right ventricle. A moderator band is seen in the right ventricle. Atria The left and right atria are normal. Mitral Valve Mild mitral valve annular calcification. Mild mitral valve regurgitation. Tricuspid Valve Mild tricuspid valve insufficiency. Normal pulmonary artery pressure. Aortic Valve Trisinus/trileaflet aortic valve. Mild diffuse aortic valve thickening. Pulmonic Valve The pulmonic valve is not well visualized. Great Vessels Normal sized aortic root. Pericardium/Pleural No pericardial effusion. MMode/2D Measurements & Calculations LVIDd: 4.8 cm IVSd: 0.86 cm Ao root diam: 3.2 cm LVIDs: 3.1 cm LVPWd: 0.94 cm RVDd: 3.5 cm FS: 34.7 % LAV(MOD-bp): 35.4 ml LVAd ap4: 31.9 cm2 SV(MOD-sp4): 63.6 ml LAV(MOD-bp) Indexed: 20.9 ml/m2 LVLd ap4: 7.9 cm SI(MOD-sp4): 37.5 ml/m2 LAV(MOD-sp2): 38.8 ml EDV(MOD-sp4): 103.7 ml LAV(MOD-sp4): 32.5 ml EDV(sp4-el): 109.6 ml LVAs ap4: 18.0 cm2 LVLs ap4: 6.6 cm ESV(MOD-sp4): 40.1 ml ESV(sp4-el): 41.9 ml EF(MOD-sp4): 61.3 % EF(sp4-el): 61.8 % SV(sp4-el): 67.7 ml LA A4 area: 14.3 cm2 LA dimension(2D): 3.2 cm RA A4 area: 13.0 cm2 TAPSE: 2.4 cm Time Measurements MV dec time: 0.20 sec Doppler Measurements & Calculations MV E max arias: 78.8 cm/sec Lat Peak E' Arias: 12.4 cm/sec Med Peak E' Arias: 12.1 cm/sec MV A max arias: 97.5 cm/sec E/E' lat: 6.4 E/E' med: 6.5 MV E/A: 0.81 Ao V2 max: 115.2 cm/sec LV V1 max: 92.2 cm/sec PA V2 max: 90.4 cm/sec Ao max P.3 mmHg LV V1 max P.4 mmHg TR max arias: 247.0 cm/sec TR max P.4 mmHg ECHO/Echo Complete Interpretation Summary The LV ejection fraction is 65 %. Mild mitral valve annular calcification. Mild mitral valve regurgitation. Mild tricuspid valve insufficiency. Ordering Physician: Angelica Sandy Referring Physician: Angelica Sandy Performed By: Rosemarie Hernandez RDCS
--- OUTSIDE RECORDS SUMMARY | 2024-12-22 09:31 | XMS RPT_ITS | CCD ---
Author Organization [facility] CliniSyct Care Team Providers Care Cage Shift Manager Name Role Phone EDILMA VERDUGO, BENY Henderson Primary Care Physician [phone] Dr. Beny Nixon Primary Care Provider Dr. Angelica Sandy Attending Provider [phone] Dr. Angelica Sandy Primary Care Provider Dr. Angelica Sandy Referring Provider [phone] Dr. Manas Parrish Attending Provider Dr. Angelica Sandy Other Provider Dr. Angelica Sandy Primary Care Provider Dr. Angelica Sandy Referring Provider MD Reinier Kingston Attending Provider Dr. Manas Gold Attending Provider Dr. Angelica Sandy Attending Provider Dr. Angelica Sandy Primary Care Provider Dr. Angelica Sandy Attending Provider Dr. Angelica Sandy Primary Care Provider Dr. Angelica Sandy Attending Provider Dr. Angelica Sandy MD Primary Care Provider Dr. Angelica Sandy MD Attending Provider Dr. Angelica Sandy MD Referring Provider Alice Hastings Other Provider Angelica Sandy Attending Unavailable Angelica Sandy Primary Care Unavailable Angelica Sandy Attending Unavailable Angelica Sandy Primary Care Unavailable Angelica Sandy Attending Unavailable Angelica Sandy Referring Unavailable Angelica Sandy Primary Care Unavailable Alice Hastings Consulting Unavailable Angelica Sandy Primary Care Unavailable Angelica Sandy Attending Unavailable Medications Current Medications Medication Drug Class(es) Dates Sig (Normalized) Sig (Original) 8 hr acetaminophen 650 mg extended release oral tablet (8 sources) Start: 01-19-2022 take 1 tablet by mouth every eight hours as needed for pain Acetaminophen (Tylenol Arthritis Pain) 650 mg tablet extended release Active 650 mg PO Q8H as needed for fever or pain January 19, 2022 12:00am aspirin 325 mg oral tablet (9 sources) Platelet Aggregation Inhibitor, Nonsteroidal Anti-inflammatory Drug Start: 01-19-2022 take 1 tablet by mouth every week Aspirin 325 mg tablet Active 325 mg PO .COMPLEX January 19, 2022 12:00am 325 mg orally 3x week; Start: 04-24-2019 take 1 mg by mouth once daily aspirin 325 mg oral delayed release tablet mg = tab(s), Oral, qDay, 0 Refill(s) Start Date: 04/24/19 Status: Ordered calcium ascorbate 500 mg oral tablet (8 sources) Start: 01-19-2022 take 1 tablet by mouth once daily Ascorbate Calcium (Vitamin C) 500 mg tablet Active 0 PO DAILY January 19, 2022 12:00am 500mg 1/2 tab orally daily; calcium carbonate 1500 mg oral tablet (8 sources) Start: 01-19-2022 take 1 tablet by mouth once daily Calcium Carbonate (Calcium 600) 600 mg calcium (1,500 mg) tablet Active 600 mg PO DAILY January 19, 2022 12:00am cholecalciferol 0.05 mg oral capsule (8 sources) Vitamin D Start: 01-19-2022 take 1 capsule by mouth once daily Cholecalciferol (Vitamin D3) 50 mcg (2,000 unit) capsule Active 50 ug PO DAILY January 19, 2022 12:00am ferrous sulfate 325 mg oral tablet (9 sources) Start: 01-19-2022 take 1 tablet by mouth once daily Ferrous Sulfate 325 mg (65 mg iron) tablet Active 325 mg PO DAILY January 19, 2022 12:00am Start: 04-24-2019 ferrous sulfat e ferrous sulfate, 0 Refill(s) Start Date: 04/24/19 Status: Ordered hydrocortisone 25 mg/ml topical cream (9 sources) Corticosteroid Start: 01-19-2022 Hydrocortisone 2.5 % cream Active 1 NMA TOPICAL TWICE A DAY as needed for skin irritation January 19, 2022 12:00am Start: 03-26-2020 hydrocortisone 2.5% topical cream Apply 1 marla, Topical, BID, # 30 gram(s), 3 Refill(s), Pharmacy: [facility]/pharmacy #[id number], 165, cm, 04/24/19 13:47:00 EDT, Height, 95.7, kg, 04/24/19 13:47:00 EDT, Dosing Weight Start Date: 03/26/20 Status: Ordered Multivitamin preparation (6 sources) Start: 01-19-2022 take 1 tablet by mouth once daily Multivitamin Active 1 TABLET PO DAILY January 18, 2022 11:00pm Start: 01-19-2022 take 1 tablet by monroe th once daily Multivitamin Active 1 TABLET PO DAILY January 19, 2022 12:00am Multivitamin tablet (2 sources) Start: 01-19-2022 Multivitamin t ablet Active 1 {tbl} PO DAILY January 19, 2022 12:00am tamsulosin hydrochloride 0.4 mg oral capsule (9 sources) alpha-Adrenerg ic Afia Start: 01-19-2022 take 1 capsule by mouth at bedtime Tamsulosin 0.4 mg capsule Active 0.4 mg PO AT BEDTIME January 19, 2022 12:00am Start: 04-24-2019 tamsulosin 0.4 mg oral capsule Dose : 0.4 mg = 1 cap(s), Oral, qDay, # 30 cap(s), 0 Refill(s) Start Date: 04/24/19 Status: Ordered tylemol arthritis (1 source) Start: 04-24-2019 tylemol arthri tis tylemol arthritis, 0 Refill(s) Start Date: 04/24/19 Status: Ordered Vitamin D with Minerals oral tablet (1 source) Start: 04-24-2019 take 1 tablet by mouth once daily Vitamin D with Minerals oral tablet Dose = 1 tab(s), Oral, qDay, # 30 tab(s), 0 Refill(s) Start Date: 04/24/19 Status: Ordered Zinc (8 sources) Start: 01-19-2022 zinc Active 0 PO .COMPLEX January 18, 2022 11:00pm orally 3x weekly; Start: 01-19-2022 zinc Active 0 PO .COMPLEX January 19, 2022 12:00am orally 3x weekly; zinc acetate 50 mg oral caps ule (1 source) Start: 04-24-2019 zinc (as aceta te) 50 mg oral capsule Dose : 50 mg = 1 cap(s), Oral, TID, # 250 cap(s), 0 Refill(s) Start Date: 04/24/19 Status: Ordered Completed/Discontinued Medications Medication Drug Class(es) Dates Sig (Normalized) Sig (Original) methylPREDNISolone 4 mg oral tablet (12 sources) Corticosteroid Start: End: take 1 tablet by mouth once Methylprednisolone (Medrol (Miguel)) 4 mg tablets,dose pack Discontinued 0 PO per package directions March 10, 2024 10:56am November 13, 2024 8:33am PO PER PKG DIR Start: 08-25-2023 End: 11-25-2023 take 1 tablet by mouth once Methylprednisolone (Medrol (Miguel)) 4 mg tablets,dose pack Discontinued 0 PO per package directions August 25, 2023 10:41am November 25, 2023 8:00am PO PER PKG DIR Start: 03-15-2023 End: 03-25-2023 take 1 tablet by mouth once Methylprednisolone (Medrol (Miguel)) 4 mg tablets,dose pack Discontinued 0 PO per package directions March 15, 2023 12:00am March 25, 2023 10:06am PO PER PKG DIR predniSONE 5 mg oral tablet (6 sources) Start: 03-15-2023 End: 03-25-2023 Prednisone 5 mg tablets,dose pack Discontinued 0 PO per package directions March 15, 2023 12:00am March 25, 2023 10:07am PO PER PKG DIR Start: 03-15-2023 End: 03-25-2023 Prednisone Discontinued 0 PO per package directions March 15, 2023 12:00am March 25, 2023 10:07am PO PER PKG DIR simvastatin 40 mg oral tablet (20 sources) HMG-CoA Reductase Inhibitor Start: 01-02-2016 End: 03-14-2024 take 1 tablet by mouth at bedtime Simvastatin 40 mg tablet Discontinued 40 mg PO AT BEDTIME 90 May 11, 2023 7:19pm March 14, 2024 3:47pm Problems Active Problems Problem Classification Problem Date Documented Da te Episodic/Chronic Administrative/social admission (2 sources) Persons encountering health services in other specified circumstances; Translations: [Other reasons for seeking consultation] Episodic Cardiac dysrhythmias (4 sources) Palpitations; Translations: [Palpitations] Onset: 11-13-2024 11-13-2024 Episodic Disorders of lipid metabolism (8 sources) Hyperlipidemia; Translations: [Hyperlipidemia, unspecified] 03-06-2021 Chronic Genitourinary symptoms and ill-defined conditions (6 sources) Lower urinary tract symptoms; Translations: [Unspecified symptoms and signs involving the genitourinary system] 03-25-2023 Episodic Gout and other crystal arthropathies (11 sources) Gout; Translations: [Gout, unspecified] 03-15-2023 Chronic Malaise and fatigue (10 sources) Fatigue; Translations: [Other fatigue] Episodic Nonspecific chest pain (10 sources) Tight chest; Translations: [Other chest pain] Episodic Osteoarthritis (10 sources) Bilateral osteoarthritis of knees; Translations: [Bilateral primary osteoarthritis of knee] Chronic Other bone disease and musculoskeletal deformities (6 sources) Costal chondritis; Translations: [Chondrocostal junction syndrome [Tietze]] 06-17-2022 Episodic Other connective tissue disease (6 sources) Hand pain; Translations: [Pain in right hand] 03-15-2023 Episodic Other connective tissue disease (6 sources) Pain in toe; Translations: [Pain in left toe(s)] 06-17-2022 Episodic Other connective tissue disease (3 sources) Pain in right hand; Translations: [Pain in limb] 03-15-2023 Episodic Other connective tissue disease (4 sources) Foot pain; Translations: [Pain in right foot] 11-06-2024 Episodic Other connective tissue disease (1 source) Pain in right foot; Translations: [Pain in right foot] Onset: 11-13-2024 Episodic Other gastrointestinal disorders (2 sources) Diarrhea; Translations: [Diarrhea, unspecified] 11-25-2023 Episodic Other gastrointestinal disorders (2 sources) Altered bowel function; Translations: [Other specified symptoms and signs involving the digestive system and abdomen] 11-25-2023 Episodic Other lower respiratory disease (8 sources) Dyspnea on exertion; Translations: [Other forms of dyspnea] 01-19-2022 Episodic Other lower respiratory disease (3 sources) Other forms of dyspnea; Translations: [Other respiratory abnormalities] Episodic Other non-traumatic joint disorders (4 sources) Pain in right knee; Translations: [Pain in both knees] 11-13-2024 Episodic Other skin disorders (8 sources) Fissure in skin; Translations: [Changes in skin texture] 01-19-2022 Episodic Other skin disorders (2 sources) Changes in skin texture; Translations: [Other specified disorders of skin] Episodic Unclassified (4 sources) Right foot pain; Translations: [M79.671 - Pain in right foot,B07.0 - Plantar wart] Viral infection (5 sources) Plantar wart; Translations: [Verruca plantaris] Onset: 11-13-2024 Episodic Past or Other Problems Problem Classification Problem Date Documented Da te Episodic/Chronic Other gastrointestinal disorders (1 source) Diarrhea, unspecified; Translations: [Diarrhea, unspecified] Onset: 01-04-2024 Episodic Other gastrointestinal disorders (1 source) Other specified symptoms and signs involving the digestive system and abdomen; Translations: [Other specified symptoms and signs involving the digestive system and abdomen] Onset: 11-25-2023 Episodic Results Test Name Value Interpretation Reference Range Facility MR/ANDRÉSKanchan 11-13-2024 MR/BMS.[facility] [address] [facility] [address] [place] [address] OFFICE VISIT Date of Service: 11/13/24 MR#: [id number] Acct: [id number] Name: ROC PERLA Rep #: [id number] : 1950 Provider: Dr. Angelica szymanski MD Age/Sex: 74/M Location: [facility] Status: Signed Intake Vital Signs 11/25/23 08:05 11/13/24 08:36 Height 5 ft 9 in 5 ft 9 in Weight: 185 lb 164 lb 4 oz BMI 27.3 24.2 BP 137/76 H 137/73 H Blood Pressure Location Lt brachial Lt brachial Position Sitting Sitting Respiration 16 16 Pulse 77 77 Pulse Source Monitor Monitor Temp 98 F 98.4 F Temp Source Temporal Temporal Pulse Oximetry (%) 97 97 Oxygen Delivery Method room air room air Intake Visit Reasons: Bilateral Knee Pain, Rt Ft Pain Chief Complaint: Bilateral knee pain, Rt foot pain Spanish Instructor Required: No Accompanied by: Self Is patient in pain?: Yes (right ankle) Pain scale (1-10): 4 Allergies No Known Allergies Allergy (Verified 11/13/24 08:27) Medications ???Medication ???Instructions ???Recorded ???Confirmed ???Type acetaminophen 650 mg 650 mg PO Q8H PRN fever or pain 11/13/24 History tablet,extended release (Tylenol Arthritis Pain) ascorbate calcium (vitamin C) 500 See Rx Instructions PO DAILY 12/2711/13/24 History mg tablet aspirin 325 mg tablet 325 mg PO .COMPLEX 01/19/22 History calcium carbonate (Calcium 600) 600 mg PO DAILY 01/19/22 11/13/24 History cholecalciferol (vitamin D3) 50 50 mcg PO DAILY 01/19/22 11/13/24 History mcg (2,000 unit) capsule ferrous sulfate 325 mg (65 mg 325 mg PO DAILY 01/19/22 11/13/24 History iron) tablet hydrocortisone 2.5 % topical cream 1 applic topical BID PRN skin 11/13/24 Rx irritation #30 grams multivitamin 1 tab PO DAILY 01/19/22 11/13/24 H istory tamsulosin 0.4 mg capsule 0.4 mg PO QHS 01/19/22 11/13/24 Hi story zinc See Rx Instructions PO .COMPLEX 11/13/24 History simvastatin 40 mg tablet 40 mg PO QHS #90 tabs 03/14/24 Rx Have you fallen in the past year?: No PFSH Medical History (Updated 11/13/24 @ 09:[address] Angelica Sandy MD) Palpitations Plantar wart Bilateral knee pain Right foot pain Right hand pain Gout Right femoral fracture High triglycerides High cholesterol Migraines Bone fracture Arthritis Family History Father Arthritis Myocardial infarction Heart disease High cholesterol Respiratory disease Mother Arthritis Colon cancer Heart disease Osteoporosis Social History Smoking Status: Former smoker HPI HPI Chief Complaint: Bilateral knee pain, Rt foot pain Details: ROC PERLA, is a 74 M who presents to the office today for an acute care follow-up visit. 74-year-old gentleman who has a history of hyperlipidemia, on simvastatin for primary prevention, Flomax and takes also vitamin D, calcium, aspirin, vitamin C and a multivitamin. He presented today for an acute care follow-up visit due to ongoing right foot pain predominantly. He has ongoing pain in bilateral knees that he has been dealing with. Undoubtedly significant osteoarthritic issues in the knees. He has been able to do act out the spring, including actually starting to play softball again as a catcher. He has been able to do this despite the knee discomfort. In any event he has pain, distal tip of the right fourth toe. At the end of that, he had a callus-like area and wondered if he had a foreign body in that location as he does wear things like crocs outdoors at times. He does not normally go barefoot however. This is comfortable, tender, particularly with getting shoes on and off but certain movements including walking do aggravate this. He also made incidental note today, towards the end of our visit, that he went to donate blood recently and he was denied due to the fact that he had irregular heartbeats when they were monit oring him. He denies any lightheadedness, chest pain, chest tightness, shortness of breath, fluttering in the chest. He states in the past he had occasional skipped heartbeat and he would feel those but he has not been feeling anything lately. He has had had normal baseline EKG, in 2022. In 2021 had stress test, exercise type, that did not show ischemia albeit a low level test, as test terminated 3 minutes on the West protocol. Review of systems per chart. Physical exam. Vital signs on chart. Sclera are clear. No thyroid nodules readily palpable. Lungs are without wheeze, rhonchi, rales. No E/A changes are heard. Heart is regular, frequent ectopic beats. Not tachycardic. No clear murmur, rub, or gallop is identified. The abdomen is soft. B (more content not included)... Normal [facility] Absolute lymphocyte countOrd ered By: Angelica Sandy on 11-08-2024 Lymphocytes Auto (Unsp spec) [#/Vol] 1.44 10*3/uL 0.83-4.51 [facility] Absolute neutrophil countOrd ered By: Angelica Sandy on 11-08-2024 Neutrophils (Bld) [#/Vol] 4.3 10*3/uL 2.0-7.7 [facility] Anion gap in Serum or Plasma Ordered By: Angelica Sandy on 11-08-2024 Anion gap [Moles/Vol] 10 mmol/L 5- [facility] Automated lymphocyte count a s percentage of total leukocytesOrdered By: Angelica Sandy on 11-08-2024 Lymphocytes/100 WBC Auto (Unsp spec) 22.0 % 19- [facility] BUN/creatinine ratioOrdered By: Angelica Sandy on 11-08-2024 Urea nitrogen/Creatinine [Mass ratio] 19.4 mg/mg 10-20 [facility] Basophil percentageOrdered B y: Angelica Sandy on 11-08-2024 Basophils/100 WBC (Bld) 0.6 % 0-1 [facility] Bilirubin, totalOrdered By: Angelica Sandy on 11-08-2024 Bilirubin [Mass/Vol] 0.40 mg/dL 0.00-1.30 [facility] CBC W/Diff, Automatedon 10-26 Absolute Lymph 1.44 X10 3/uL Normal 0.83-4.51 [facility] Comment on above: Performed By: #### L 500.4100, L501.9910, L506.1001, L501.1400, L501.5200, L501.6710, L100.0100, L101.9900, L500.4050 #### [facility] [address] [address] [place], [address] Absolute Neut 4.3 X10 3/uL Normal 2.0-7.7 [facility] Comment on above: Performed By: #### L 500.4100, L501.9910, L506.1001, L501.1400, L501.5200, L501.6710, L100.0100, L101.9900, L500.4050 #### [facility] [address] [facility] [place], [address] Basophils/100 WBC (Bld) 0.6 % Normal 0-1 [facility] Comment on above: Performed By: #### L 500.4100, L501.9910, L506.1001, L501.1400, L501.5200, L501.6710, L100.0100, L101.9900, L500.4050 #### [facility] [address] [facility] [place], [place], [phone] (176 Eosinophils/100 WBC (Bld) 3.0 % Normal 0-5 [facility] Comment on above: Performed By: #### L 500.4100, L501.9910, L506.1001, L501.1400, L501.5200, L501.6710, L100.0100, L101.9900, L500.4050 #### [facility] [address] [facility] [place], [place], [phone] (073 Erythrocyte distribution width (RBC) [Ratio] 12.4 % Normal 11.6-14.6 [facility] Comment on above: Performed By: #### L 500.4100, L501.9910, L506.1001, L501.1400, L501.5200, L501.6710, L100.0100, L101.9900, L500.4050 #### [facility] [address] [place], [address] Hematocrit (Bld) [Volume fraction] 40.9 % Normal 40-54 [facility] Comment on above: Performed By: #### L 500.4100, L501.9910, L506.1001, L501.1400, L501.5200, L501.6710, L100.0100, L101.9900, L500.4050 #### [facility] [address] [place], [address] Hemoglobin (Bld) [Mass/Vol] 14.0 g/dL Normal 13.0-16.5 [facility] Comment on above: Performed By: #### L 500.4100, L501.9910, L506.1001, L501.1400, L501.5200, L501.6710, L100.0100, L101.9900, L500.4050 #### [facility] [address] [place], [address] IG% 0.200 Normal 0.0-0.9 [facility] Comment on above: Result Comment: IG% - Immature Granulocytes (promyelocytes, myelocytes and metamyelocytes) > 1% indicates that a LEFT SHIFT is Present. Performed By: #### L 500.4100, L501.9910, L506.1001, L501.1400, L501.5200, L501.6710, L100.0100, L101.9900, L500.4050 #### [facility] [address] [place], [address] Lymphocytes/100 WBC (Bld) 22.0 % Normal 19-41 [facility] Comment on above: Performed By: #### L 500.4100, L501.9910, L506.1001, L501.1400, L501.5200, L501.6710, L100.0100, L101.9900, L500.4050 #### [facility] [address] [place], [address] MCH (RBC) [Entitic mass] 32.3 pg High 27.0-32.0 [facility] Comment on above: Performed By: #### L 500.4100, L501.9910, L506.1001, L501.1400, L501.5200, L501.6710, L100.0100, L101.9900, L500.4050 #### [facility] [address] [place], [address] MCHC (RBC) [Mass/Vol] 34.2 g/dL Normal 32-36 [facility] Comment on above: Performed By: #### L 500.4100, L501.9910, L506.1001, L501.1400, L501.5200, L501.6710, L100.0100, L101.9900, L500.4050 #### [facility] [address] [place], [address] MCV (RBC) [Entitic vol] 94.2 fL High 80-94 [facility] Comment on above: Performed By: #### L 500.4100, L501.9910, L506.1001, L501.1400, L501.5200, L501.6710, L100.0100, L101.9900, L500.4050 #### [facility] [address] [place], [address] Monocytes/100 WBC (Bld) 8.7 % Normal 0-10 [facility] Comment on above: Performed By: #### L 500.4100, L501.9910, L506.1001, L501.1400, L501.5200, L501.6710, L100.0100, L101.9900, L500.4050 #### [facility] [address] [place], [address] Neutrophils/100 WBC (Bld) 65.5 % Normal 47-70 [facility] Comment on above: Performed By: #### L 500.4100, L501.9910, L506.1001, L501.1400, L501.5200, L501.6710, L100.0100, L101.9900, L500.4050 #### [facility] [address] [place], [address] Nucleated RBC (Bld) [#/Vol] 0 10*3/uL Normal 0-5 [facility] Comment on above: Performed By: #### L 500.4100, L501.9910, L506.1001, L501.1400, L501.5200, L501.6710, L100.0100, L101.9900, L500.4050 #### [facility] [address] [place], [address] Platelet mean volume (Bld) [Entitic vol] 9.3 fL Normal 6.2-12.0 [facility] Comment on above: Performed By: #### L 500.4100, L501.9910, L506.1001, L501.1400, L501.5200, L501.6710, L100.0100, L101.9900, L500.4050 #### [facility] [address] [place], [place], [id number] (260) Platelets (Bld) [#/Vol] 196 10*3/uL Normal 150-450 [facility] Comment on above: Performed By: #### L 500.4100, L501.9910, L506.1001, L501.1400, L501.5200, L501.6710, L100.0100, L101.9900, L500.4050 #### [facility] [address] [place], [place], [id number] (830) RBC (Bld) [#/Vol] 4.34 10*6/uL Low 4.6-6.2 [facility] Comment on above: Performed By: #### L 500.4100, L501.9910, L506.1001, L501.1400, L501.5200, L501.6710, L100.0100, L101.9900, L500.4050 #### [facility] [address] [place], [address] RDW SD 43.2 fl Normal 35.1-43.9 [facility] Comment on above: Performed By: #### L 500.4100, L501.9910, L506.1001, L501.1400, L501.5200, L501.6710, L100.0100, L101.9900, L500.4050 #### [facility] [address] [facility] [place], [place], [address] WBC (Bld) [#/Vol] 6.6 10*3/uL Normal 4.4-11.0 [facility] Comment on above: Performed By: #### L 500.4100, L501.9910, L506.1001, L501.1400, L501.5200, L501.6710, L100.0100, L101.9900, L500.4050 #### [facility] [address] [facility] [place], [place], [id number] CRPon 11-08-2024 C-REACTIVE PROT < 3.00 Normal 0.0-3.0 [facility] Comment on above: Performed By: #### L 500.4100, L501.9910, L506.1001, L501.1400, L501.5200, L501.6710, L100.0100, L101.9900, L500.4050 #### [facility] [address] [facility] [place], [place], [id number] Calculated very low density lipoprotein (VLDL) cholesterol measurementOrdered By: Angelica Sandy on 11-08-2024 Calculated very low density lipoprotein (VLDL) cholesterol measurement 11 mg/dL 5-40 [facility] Carbon dioxide, total [Moles /volume] in Central venous bloodOrdered By: Angelica Sandy on 11-08-2024 CO2 [Moles/Vol] 24.5 mmol/L 21.0-32.0 [facility] Chloride assayOrdered By: Makeda Sandy on 11-08-2024 Chloride [Moles/Vol] 105 mmol/L 98-108 [facility] Comprehensive Metabolic Prof ilon 11-08-2024 Albumin [Mass/Vol] 4.1 g/dL Normal 3.4-4.8 [facility] Comment on above: Performed By: #### L 500.4100, L501.9910, L506.1001, L501.1400, L501.5200, L501.6710, L100.0100, L101.9900, L500.4050 #### [facility] [address] [place], [address] Albumin/Globulin [Mass ratio] 1.4 {ratio} Normal 0.9-2.4 [facility] Comment on above: Performed By: #### L 500.4100, L501.9910, L506.1001, L501.1400, L501.5200, L501.6710, L100.0100, L101.9900, L500.4050 #### [facility] [address] [place], [address] ALK PHOS 88 U/L Normal 40-129 [facility] Comment on above: Performed By: #### L 500.4100, L501.9910, L506.1001, L501.1400, L501.5200, L501.6710, L100.0100, L101.9900, L500.4050 #### [facility] [address] [place], [address] ALT [Catalytic activity/Vol] 18 U/L Normal <=46 [facility] Comment on above: Performed By: #### L 500.4100, L501.9910, L506.1001, L501.1400, L501.5200, L501.6710, L100.0100, L101.9900, L500.4050 #### [facility] [address] [place], [address] AST [Catalytic activity/Vol] 26 U/L Normal <=37 [facility] Comment on above: Performed By: #### L 500.4100, L501.9910, L506.1001, L501.1400, L501.5200, L501.6710, L100.0100, L101.9900, L500.4050 #### [facility] [address] [place], [address] Bilirubin [Mass/Vol] 0.40 mg/dL Normal 0.00-1.30 [facility] Comment on above: Performed By: #### L 500.4100, L501.9910, L506.1001, L501.1400, L501.5200, L501.6710, L100.0100, L101.9900, L500.4050 #### [facility] [address] [place], [address] BUN/CRE 19.4 RATIO Normal 10-20 [facility] Comment on above: Performed By: #### L 500.4100, L501.9910, L506.1001, L501.1400, L501.5200, L501.6710, L100.0100, L101.9900, L500.4050 #### [facility] [address] [place], [address] Calcium [Mass/Vol] 9.4 mg/dL Normal 7.6-11.0 [facility] Comment on above: Performed By: #### L 500.4100, L501.9910, L506.1001, L501.1400, L501.5200, L501.6710, L100.0100, L101.9900, L500.4050 #### [facility] [address] [place], [address] Chloride [Moles/Vol] 105 mmol/L Normal 98-108 [facility] Comment on above: Performed By: #### L 500.4100, L501.9910, L506.1001, L501.1400, L501.5200, L501.6710, L100.0100, L101.9900, L500.4050 #### [facility] [address] [place], [address] CO2 [Moles/Vol] 24.5 mmol/L Normal 21.0-32.0 [facility] Comment on above: Performed By: #### L 500.4100, L501.9910, L506.1001, L501.1400, L501.5200, L501.6710, L100.0100, L101.9900, L500.4050 #### [facility] [address] [place], [address] Creatinine [Mass/Vol] 0.79 mg/dL Normal 0.70-1.20 [facility] Comment on above: Performed By: #### L 500.4100, L501.9910, L506.1001, L501.1400, L501.5200, L501.6710, L100.0100, L101.9900, L500.4050 #### [facility] [address] [place], [place], [id number] GAP 10 Normal 5-15 [facility] Comment on above: Performed By: #### L 500.4100, L501.9910, L506.1001, L501.1400, L501.5200, L501.6710, L100.0100, L101.9900, L500.4050 #### [facility] [address] [place], [address] GFR/1.73 sq M.predicted among non-blacks MDRD (S/P/Bld) [Vol rate/Area] 93 mL/min/{1.73_m2} Normal >60 [facility] Comment on above: Result Comment: mL/m in/1.73m2 CKD-EPI Creatinine Equation (2020) Performed By: #### L 500.4100, L501.9910, L506.1001, L501.1400, L501.5200, L501.6710, L100.0100, L101.9900, L500.4050 #### [facility] [address] [place], [address] Globulin (S) [Mass/Vol] 2.8 g/dL Normal 2.2-4.2 [facility] Comment on above: Performed By: #### L 500.4100, L501.9910, L506.1001, L501.1400, L501.5200, L501.6710, L100.0100, L101.9900, L500.4050 #### [facility] [address] [place], [address] Glucose [Mass/Vol] 99 mg/dL Normal 70-99 [facility] Comment on above: Performed By: #### L 500.4100, L501.9910, L506.1001, L501.1400, L501.5200, L501.6710, L100.0100, L101.9900, L500.4050 #### [facility] [address] [place], [address] Potassium [Moles/Vol] 4.6 mmol/L Normal 3.3-5.1 [facility] Comment on above: Performed By: #### L 500.4100, L501.9910, L506.1001, L501.1400, L501.5200, L501.6710, L100.0100, L101.9900, L500.4050 #### [facility] [address] [place], [address] Sodium [Moles/Vol] 140 mmol/L Normal 133-145 [facility] Comment on above: Performed By: #### L 500.4100, L501.9910, L506.1001, L501.1400, L501.5200, L501.6710, L100.0100, L101.9900, L500.4050 #### [facility] [address] [place], [address] T PROT 6.9 g/dL Normal 5.9-8.4 [facility] Comment on above: Performed By: #### L 500.4100, L501.9910, L506.1001, L501.1400, L501.5200, L501.6710, L100.0100, L101.9900, L500.4050 #### [facility] [address] [place], [address] Urea nitrogen [Mass/Vol] 15 mg/dL Normal 4-19 [facility] Comment on above: Performed By: #### L 500.4100, L501.9910, L506.1001, L501.1400, L501.5200, L501.6710, L100.0100, L101.9900, L500.4050 #### [facility] [address] [place], [address] Eosinophil percentageOrdered By: Angelica Sandy on 11-08-2024 Eosinophils/100 WBC (Bld) 3.0 % 0-5 [facility] Erythrocyte Sed Rateon 11-08 SED RATE 11 mm/hr Normal 0-20 [facility] Comment on above: Performed By: #### L 500.4100, L501.9910, L506.1001, L501.1400, L501.5200, L501.6710, L100.0100, L101.9900, L500.4050 #### [facility] [address] [place], [place], [address] Erythrocyte distribution wid th ratioOrdered By: Angelica Sandy on 11-08-2024 Erythrocyte distribution width (RBC) [Ratio] 12.4 % 11.6-14.6 [facility] Erythrocyte distribution wid th standard deviationOrdered By: Angelica Sandy on 11-08-2024 Erythrocyte distribution width (RBC) [Ratio] 43.2 fl 35.1-43.9 [facility] Erythrocyte sedimentation ra teOrdered By: Angelica Sandy on 11-08-2024 ESR (Bld) [Velocity] 11 mm/h 0-20 [facility] Foot min 3 Viewson Foot min 3 Views [facility] [address] [place] [address] Foot min 3 Views MR#: [id number] Acct: [id number] Name: ROC PERLA Rep #: [id number] : 1950 M 74 From: Caden Morales MD PCP: Dr. Angelica Sandy MD Status: REG CLI Study: Foot min 3 Views Date of Exam: 11/08/24 Exam# [id number] Ordering Dr: Angelica Sandy MD EXAM: XR Right Foot Complete, 3 or More Views CLINICAL INDICATION: RIGHT FOOT PAIN, 4 TH DIGIT, DISTAL PAIN TECHNIQUE: Frontal, lateral and oblique views of the right foot. COMPARISON: No relevant prior studies available. FINDINGS: BONES/JOINTS: Moderate intertarsal degenerative changes. No acute fracture. No dislocation. SOFT TISSUES: Soft tissue swelling. No radiopaque foreign body. RAD/Foot min 3 Views IMPRESSION: Degenerative changes as above. Reading Location: [facility] CC: Dr. 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 Normal [facility] Glomerular filtration rate ( GFR) estimation/1.73 sq m using serum, plasma, or whole bOrdered By: Angelica Sandy on 11-08-2024 GFR/1.73 sq M.predicted among non-blacks MDRD (S/P/Bld) [Vol rate/Area] 93 mL/min/{1.73_m2} >60 [facility] Comment on above: mL/min/1.73m2 CKD-EP I Creatinine Equation (2020) Hematocrit Auto (Bld) [Volum e fraction]Ordered By: Angelica Sandy on 11-08-2024 Hematocrit (Bld) [Volume fraction] 40.9 % 40-54 [facility] Hemoglobin measurementOrdere d By: Angelica Sandy on 11-08-2024 Hemoglobin (Bld) [Mass/Vol] 14.0 g/dL 13.0-16.5 [facility] Immature granulocytes/100 WB C Auto (Bld)Ordered By: Angelica Sandy on 11-08-2024 Immature granulocytes/100 WBC (Bld) 0.200 % 0.0-0.9 [facility] Comment on above: IG% - Immature Granu locytes (promyelocytes, myelocytes and metamyelocytes) > 1% indicates that a LEFT SHIFT is Present. LDL calc ser/plasOrdered By: Angelica Sandy on 11-08-2024 Cholesterol in LDL [Mass/Vol] 80 mg/dL [facility] Comment on above: Nuukdolyes=141-915 m g/dL & Higher Zefv=377 mg/dL or greater Laboratory - Chemistry and C hemistry - challengeOrdered By: Angelica Sandy on 11-08-2024 AST [Catalytic activity/Vol] 26 U/L <38 [facility] Lipid Profileon 11-08-2024 CHOL:HDL 3.28 Normal [facility] Comment on above: Performed By: #### L 500.4100, L501.9910, L506.1001, L501.1400, L501.5200, L501.6710, L100.0100, L101.9900, L500.4050 #### [facility] [address] [place], [place], [id number] ([address]) Cholesterol [Mass/Vol] 132 mg/dL Normal <=200 [facility] Comment on above: Result Comment: Chol esterol level, Desirable <200 mg/dL Borderline high cholesterol 200-239 mg/dL High cholesterol >=240 mg/dL Recommendations of the NCEP Adult Treatment Panel for the following risk-cutoff thresholds for the [place] population. Performed By: #### L 500.4100, L501.9910, L506.1001, L501.1400, L501.5200, L501.6710, L100.0100, L101.9900, L500.4050 #### [facility] [address] [place], [address] Cholesterol in HDL [Mass/Vol] 40 mg/dL Normal [facility] Comment on above: Result Comment: Shelia onal Cholesterol Education Program (NCEP) guidelines: <40 mg/dL: Low HDL-cholesterol (major risk factor for CHD) >= 60 mg/dL: High HDL-cholesterol (negative risk factor for CHD) HDL-cholesterol is affected by a number of factors, e.g. smoking, exercise, hormones, sex and age. Performed By: #### L 500.4100, L501.9910, L506.1001, L501.1400, L501.5200, L501.6710, L100.0100, L101.9900, L500.4050 #### [facility] [address] [place], [address] Cholesterol in LDL [Mass/Vol] 80 mg/dL Normal [facility] Comment on above: Result Comment: Bord loymme=634-376 mg/dL Higher Fzkp=357 mg/dL or greater Performed By: #### L 500.4100, L501.9910, L506.1001, L501.1400, L501.5200, L501.6710, L100.0100, L101.9900, L500.4050 #### [facility] [address] [place], [address] Cholesterol in VLDL [Mass/Vol] 11 mg/dL Normal 5-40 [facility] Comment on above: Performed By: #### L 500.4100, L501.9910, L506.1001, L501.1400, L501.5200, L501.6710, L100.0100, L101.9900, L500.4050 #### [facility] [address] [place], [address] Triglyceride [Mass/Vol] 57 mg/dL Normal [facility] Comment on above: Result Comment: The drugs N-Acetylcysteine and Metamizole may falsely depress this assay. Normal range: <150 mg/dL Borderline High: 150-199 mg/dL High: 200-499 mg/dL Very High: >500 mg/dL Performed By: #### L 500.4100, L501.9910, L506.1001, L501.1400, L501.5200, L501.6710, L100.0100, L101.9900, L500.4050 #### [facility] [address] [place], [address] MCV (mean corpuscular volume ) determinationOrdered By: Angelica Sandy on 11-08-2024 MCV (RBC) [Entitic vol] 94.2 fL High 80-94 [facility] Magnesiumon 11-08-2024 Magnesium [Mass/Vol] 2.2 mg/dL Normal 1.5-2.2 [facility] Comment on above: Performed By: #### L 500.4100, L501.9910, L506.1001, L501.1400, L501.5200, L501.6710, L100.0100, L101.9900, L500.4050 #### [facility] [address] [place], [place], [id number] Magnesium measurement (mass/ volume)Ordered By: Angelica Sandy on 11-08-2024 Magnesium (Unsp spec) [Mass/Vol] 2.2 mg/dL 1.5-2.2 [facility] Mean corpuscular hemoglobin (MCH) determinationOrdered By: Angelica Sandy on 11-08-2024 MCH (RBC) [Entitic mass] 32.3 pg High 27.0-32.0 [facility] Mean corpuscular hemoglobin concentration (MCHC) determinationOrdered By: Angelica Sandy on 11-08-2024 MCHC (RBC) [Mass/Vol] 34.2 g/dL 32-36 [facility] Mean platelet volume determi nationOrdered By: Angelica Sandy on 11-08-2024 Platelet mean volume (Bld) [Entitic vol] 9.3 fL 6.2-12.0 [facility] Monocyte percentageOrdered B y: Angelica Sandy on 11-08-2024 Monocytes/100 WBC (Bld) 8.7 % 0-10 [facility] Neutrophil percentageOrdered By: Angelica Sandy on 11-08-2024 Neutrophils/100 WBC (Bld) 65.5 % 47-70 [facility] Nucleated red blood cell per centageOrdered By: Angelica Sandy on 11-08-2024 Nucleated RBC/100 WBC (Bld) [Ratio] 0 % 0-5 [facility] PSA,Total - Annual Screenon 11-08-2024 PSA,TOT SCREEN 0.31 ng/mL Normal 0.02-4.00 [facility] Comment on above: Result Comment: This test was performed using the [employer] tPSA method. Measured values of a patient??sample can vary depending on the testing procedure used. PSA values determined on patient samples by different testing procedures cannot be used interchangeably. If there is a change in PSA assays while monitoring therapy, sequential testing should be performed to confirm baseline values. Performed By: #### L 500.4100, L501.9910, L506.1001, L501.1400, L501.5200, L501.6710, L100.0100, L101.9900, L500.4050 #### [facility] [address] [place], [address] Platelet countOrdered By: Makeda Sandy on 11-08-2024 Platelets (Bld) [#/Vol] 196 10*3/uL 150-450 [facility] Potassium measurement (mass/ volume)Ordered By: Angelica Sandy on 11-08-2024 Potassium (Unsp spec) [Mass/Vol] 4.6 mmol/L 3.3-5.1 [facility] RBC Auto (Bld) [#/Vol]Ordere d By: Angelica Sandy on 11-08-2024 RBC (Bld) [#/Vol] 4.34 10*6/uL Low 4.6-6.2 [facility] Screening total cholesterol/ high density lipoprotein (HDL) cholesterol ratioOrdered By: Angelica Sandy on 11-08-2024 Cholesterol.total/Chol esterol in HDL [Mass ratio] 3.28 {ratio} [facility] Serum creatinine measurement (mass/volume)Ordered By: Angelica Sandy on 11-08-2024 Creatinine [Mass/Vol] 0.79 mg/dL 0.70-1.20 [facility] Serum globulin measurementOr dered By: Angelica Sandy on 11-08-2024 Globulin (S) [Mass/Vol] 2.8 g/dL 2.2-4.2 [facility] Serum glucose measurement (m ass/volume)Ordered By: Angelica Sandy on 11-08-2024 Glucose [Mass/Vol] 99 mg/dL 70-99 [facility] Serum or plasma C reactive p rotein measurement (mass/volume)Ordered By: Angelica Sandy on 11-08-2024 CRP [Mass/Vol] mg/L 0.0-3.0 [facility] Serum or plasma alanine ball otransferase (ALT) measurementOrdered By: Angelica Sandy on 11-08-2024 ALT [Catalytic activity/Vol] 18 U/L <47 [facility] Serum or plasma albumin carrillo urement (mass/volume)Ordered By: Angelica Sandy on 11-08-2024 Albumin [Mass/Vol] 4.1 g/dL 3.4-4.8 [facility] Serum or plasma albumin/glob ulin mass ratioOrdered By: Angelica Sandy on 11-08-2024 Albumin/Globulin [Mass ratio] 1.4 {ratio} 0.9-2.4 [facility] Serum or plasma alkaline dontae sphatase measurementOrdered By: Angelica Sandy on 11-08-2024 ALP [Catalytic activity/Vol] 88 U/L 40-129 [facility] Serum or plasma calcium carrillo urement (mass/volume)Ordered By: Angelica Sandy on 11-08-2024 Calcium [Mass/Vol] 9.4 mg/dL 7.6-11.0 [facility] Serum or plasma cholesterol in HDL measurement (mass/volume)Ordered By: Angelica Sandy on 11-08-2024 Cholesterol in HDL [Mass/Vol] 40 mg/dL >40 [facility] Comment on above: National Cholesterol Education Program (NCEP) guidelines:<40 mg/dL: Low HDL-cholesterol (major risk factor for CHD)>= 60 mg/dL: High HDL-cholesterol (negative risk factor for CHD)HDL-cholesterol is affected by a number of factors, e.g. smoking, exercise, hormones, sex and age. Serum or plasma cholesterol measurement (mass/volume)Ordered By: Angelica Sandy on 11-08-2024 Cholesterol [Mass/Vol] 132 mg/dL <201 [facility] Comment on above: Cholesterol level, D esirable <200 mg/dLBorderline high cholesterol 200-239 mg/dLHigh cholesterol >=240 mg/dLRecommendations of the NCEP Adult Treatment Panel for the following risk-cutoff thresholds for the [place] population. Serum or plasma urea nitroge n measurement (mass/volume)Ordered By: Angelica Sandy on 11-08-2024 Urea nitrogen [Mass/Vol] 15 mg/dL 4-19 [facility] Serum or plasma uric acid me asurement (mass/volume)Ordered By: Angelica Sandy on 11-08-2024 Urate [Mass/Vol] 7.1 mg/dL 3.5-7.2 [facility] Comment on above: The drugs N-Acetylcy steine and Metamizole may falsely depress this assay. Sodium levelOrdered By: Zita Sandy on 11-08-2024 Sodium [Moles/Vol] 140 mmol/L 133-145 [facility] Total proteinOrdered By: Tiara Sandy on 11-08-2024 Protein [Mass/Vol] 6.9 g/dL 5.9-8.4 [facility] Triglycerides measurementOrd ered By: Angelica Sandy on 11-08-2024 Triglyceride [Mass/Vol] 57 mg/dL <199 [facility] Comment on above: The drugs N-Acetylcy steine and Metamizole may falsely depress this assay. Normal range: <150 mg/dLBorderline High: 150-199 mg/dLHigh: 200-499 mg/dLVery High: >500 mg/dL Uric Acidon 11-08-2024 URIC 7.1 mg/dL Normal 3.5-7.2 [facility] Comment on above: Result Comment: The drugs N-Acetylcysteine and Metamizole may falsely depress this assay. Performed By: #### L 500.4100, L501.9910, L506.1001, L501.1400, L501.5200, L501.6710, L100.0100, L101.9900, L500.4050 #### [facility] [address] [place], [place], [address] Vitamin D,25 Hydroxyon 11-08 Vitamin D 25-OH 53.6 ng/mL Normal 30-100 [facility] Comment on above: Result Comment: Laura min D Status Deficiency: <20 ng/mL (50nmol/L) Insufficiency: 20-30 ng/mL (50-75 nmol/L) Sufficiency: 30-100 ng/mL (75-250 nmol/L) Toxicity: >100 ng/mL (>250 nmol/L) Performed By: #### L 500.4100, L501.9910, L506.1001, L501.1400, L501.5200, L501.6710, L100.0100, L101.9900, L500.4050 #### [facility] [address] [place], [place], [id number] White blood cell (WBC) count Ordered By: Angelica Sandy on 11-08-2024 WBC (Bld) [#/Vol] 6.6 10*3/uL 4.4-11.0 [facility] Miscellaneous Lab Procedureo n 12-11-2023 [facility] LAB TEST Normal [facility] Comment on above: Order Comment: STOOL CULTURE [id number] Result Comment: STOO L CULTURE TEST RESULT SALMONELLA/SHIGELLA SCREEN NO SALMONELLA OR SHIGELLA RECOVERED. CAMPYLOBACTER CULTURE NO CAMPYLOBACTER SPECIES ISOLATED. E COLI SHIGA TOXIN EIA [facility] ORIGINAL REPORT ON FILE IN LAB CONTAINS ADDITIONAL TEST SITE INFORMATION. Performed By: #### L 500.4100, L501.9910, L506.1001, L501.1400, L501.5200, L501.6710, L100.0100, L101.9900, L500.4050 #### [facility] [address] [place], [address] Calprotectin, Stoolon [address] 185 ug/g Abnormal 0-120 [facility] Comment on above: Order Comment: Test( s) [id number], Neutral; [id number], Totalwas developed and its performance characteristicsdetermined by [employer]. It has not been cleared or approvedby the Food and Drug Administration. Result Comment: Conc entration Interpretation Follow-Up < 5 - 50 ug/g Normal None >50 -120 ug/g Borderline Re-evaluate in 4-6 weeks >120 ug/g Abnormal Repeat as clinically indicated Performed at: [address] [id number] String Laster: Addi Garcia PhD, Phone: [phone] Performed at: [address] [id number] [employer]: Ana Harp MD, Phone: [phone] Performed By: #### L 500.4100, L501.9910, L506.1001, L501.1400, L501.5200, L501.6710, L100.0100, L101.9900, L500.4050 #### [facility] [address] [place], [place], [id number] Fecal Fat, Qualitativeon FATS, NEUTRAL Normal Normal . [facility] Comment on above: Order Comment: Test( s) [id number], Neutral; [id number]-Glez, Totalwas developed and its performance characteristicsdetermined by [employer]. It has not been cleared or approvedby the Food and Drug Administration. Result Comment: Norm al (<60 Droplets/HPF) Performed By: #### L 500.4100, L501.9910, L506.1001, L501.1400, L501.5200, L501.6710, L100.0100, L101.9900, L500.4050 #### [facility] [address] [place], [place], [id number] FATS, TOTAL Increased Normal . [facility] Comment on above: Order Comment: Test( s) [id number], Neutral; [id number]-Ddgs, Totalwas developed and its performance characteristicsdetermined by [employer]. It has not been cleared or approvedby the Food and Drug Administration. Result Comment: Norm al (<100 Droplets/HPF) Performed By: #### L 500.4100, L501.9910, L506.1001, L501.1400, L501.5200, L501.6710, L100.0100, L101.9900, L500.4050 #### [facility] [address] [place], [place], [address] Stool Lactoferrin/WBCon 05-3 WBCST Normal Reference Ran ge = Negative Fecal WBC Lactoferrin Negative: No Fecal WBC Lactoferrin present Normal [facility] Comment on above: Performed By: #### L 500.4100, L501.9910, L506.1001, L501.1400, L501.5200, L501.6710, L100.0100, L101.9900, L500.4050 #### [facility] [address] [place], [place], [id number] MR/BMS.Bon 11-25-2023 MR/BMS.B [facility] [address] [place] [address] OFFICE VISIT Date of Service: 11/25/23 MR#: [id number] Acct: [id number] Name: ROC PERLA Rep #: [id number] : 1950 Provider: Dr. Angelica szymanski MD Age/Sex: 73/M Location: [facility] Status: Signed Intake Vital Signs 08/24/23 08:53 11/25/23 08:05 Height 5 ft 6 in 5 ft 9 in Weight: 187 lb 185 lb BMI 30.2 27.3 BP 143/82 H 137/76 H Blood Pressure Location Rt brachial Lt brachial Position Sitting Sitting Respiration 15 16 Pulse 84 77 Pulse Source Monitor Monitor Temp 98.4 F 98 F Temp Source Temporal Temporal Pulse Oximetry (%) 95 97 Oxygen Delivery Method room air room air Intake Visit Reasons: Stomach Issues Chief Complaint: stomach issues Spanish Instructor Required: No Accompanied by: Self Is patient in pain?: No Allergies No Known Allergies Allergy (Verified 11/25/23 08:00) Medications ???Medication ???Instructions ???Recorded ???Confirmed ???Type acetaminophen 650 mg 650 mg PO Q8H PRN fever or pain 01/19/22 11/25/23 History tablet,extended release (Tylenol Arthritis Pain) ascorbate calcium (vitamin C) 500 See Rx Instructions PO DAILY 01/19/22 11/25/23 History mg tablet aspirin 325 mg tablet 325 mg PO .COMPLEX 01/19/22 11/25/23 History calcium carbonate (Calcium 600) 600 mg PO DAILY 01/19/22 11/25/23 History cholecalciferol (vitamin D3) 50 50 mcg PO DAILY 01/19/22 11/25/23 History mcg (2,000 unit) capsule ferrous sulfate 325 mg (65 mg 325 mg PO DAILY 01/19/22 11/25/23 History iron) tablet hydrocortisone 2.5 % topical cream 1 applic topical BID PRN skin 01/19/22 11/25/23 Rx irritation #30 grams multivitamin 1 tab PO DAILY 01/19/22 11/25/23 History tamsulosin 0.4 mg capsule 0.4 mg PO QHS 01/19/22 11/25/23 History zinc See Rx Instructions PO .COMPLEX 01/19/22 11/25/23 History simvastatin 40 mg tablet 40 mg PO QHS #90 tabs 05/11/23 11/25/23 Rx PFSH Medical History Right hand pain Gout Right femoral fracture High triglycerides High cholesterol Migraines Bone fracture Arthritis Family History Father Arthritis Myocardial infarction Heart disease High cholesterol Respiratory disease Mother Arthritis Colon cancer Heart disease Osteoporosis Social History Smoking Status: Former smoker HPI HPI Chief Complaint: stomach issues Details: ROC PERLA, is a 73 M who presents to the office today for an acute care follow-up visit. 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 Somewhere on or about September 14, he had a abrupt change in that pattern, where he has been having loose stool. Typically 2???3 times per morning. He is not having loose stools throughout the day but his bowel movements have been confined still to the morning. They are loose, watery, except for a couple of days where it did firm up just a little bit but then went back to this pattern once again. He gets a sense of oiliness to the stool he feels. He has excess amounts of gas but no significant cramping pain. No blood in the stool, no black stool although he has taken iron supplement [id number] in the past and sometimes that will darken it a bit he states. He has never had colonoscopy but he had been following with Cologuard and they have been negative to this point on several occasions. He has not had fever or chills, nausea or vomiting. This did not start out as a typical gastroenteritis or anything of that nature just a simple change of the bowel movement pattern. Review of systems per chart. Physical exam. Vital signs on chart. My exam is limited today. The abdomen is soft throughout. Bowel sounds are present throughout. Not hyperactive. Abdomen is not distended, no clear palpable masses throughout the abdomen. No guarding, rigidity or rebound tenderness. The remainder of exam unremarkable. ROS Const Constitutional: No body ache, chills, excessive sweating, fatigue, fever(s), frequent falls, headache(s), snoring, weakness or change in appetite Eyes Eyes: No blurry vision, change in vision, eye pain or Light sensitivity ENT ENT: No abnormal hearing, ear or mastoid pain, tinnitus, nasal congestion, headache(s), neck pain or sore throat Resp Respiratory: No cough, shortness of breath, snoring or wheezing Cardio Cardiology: No chest pain at rest, chest pain with exertion, excessive sweating, dyspnea on exertion, lightheadedness, orthopnea or palpitations Gastro GI: Positive for belching, change in bowel habits, excessive flatus and loose stools; No abdominal pain, constipation, cramping, diarr (more content not included)... Normal [facility] No Panel InformationOrdered By: Abdiaziz Sosa on 10-12-2023 Prostate Specific Antigen Screen 0.55 ng/mL 0.00-4.00 [facility] Comment on above: This test was perfor med using the TPSA assay method for the[employer] chemistry system. Values obtained with differentassay methods cannot be used interchangably.When changing PSA assays in the course of monitoring apatient, additional sequential testing should be carriedout to confirm baseline values. Absolute lymphocyte countOrd ered By: Angelica Sandy on 08-25-2023 Lymphocytes Auto (Unsp spec) [#/Vol] 1.41 10*3/uL 0.83-4.51 [facility] Automated lymphocyte count a s percentage of total leukocytesOrdered By: Angelica Sandy on 08-25-2023 Lymphocytes/100 WBC Auto (Unsp spec) 14.6 % 19-41 [facility] Basophil percentageOrdered B y: Aneglica Sandy on 08-25-2023 Basophils/100 WBC (Bld) 0.4 % 0-1 [facility] Bilirubin [Mass/Vol] 0.50 mg/dL 0.20-1.00 [facility] Comment on above: For patients on eltr ombopag therapy, use of Dimension [place] TBIL is not recommended. Chloride [Moles/Vol] 108 mmol/L 98-107 [facility] Eosinophils/100 WBC (Bld) 1.1 % 0-5 [facility] Glucose [Mass/Vol] 95 mg/dL 74-106 [facility] Hemoglobin (Bld) [Mass/Vol] 13.6 g/dL 13.0-16.5 [facility] Monocytes/100 WBC (Bld) 11.0 % 0-10 [facility] Neutrophils (Bld) [#/Vol] 7.0 10*3/uL 2.0-7.7 [facility] Neutrophils/100 WBC (Bld) 72.6 % 47-70 [facility] Potassium [Moles/Vol] 4.1 mmol/L 3.5-5.1 [facility] Protein [Mass/Vol] 7.3 g/dL 6.4-8.2 [facility] Sodium [Moles/Vol] 139 mmol/L 136-145 [facility] WBC (Bld) [#/Vol] 9.7 10*3/uL 4.4-11.0 [facility] Determination of erythrocyte mean corpuscular volume (MCV)Ordered By: Angelica Sandy on 08-25-2023 MCV (RBC) [Entitic vol] 94.8 fL 80-94 [facility] Erythrocyte distribution wid th ratioOrdered By: Angelica Sandy on 08-25-2023 Erythrocyte distribution width (RBC) [Ratio] 12.1 % 11.6-14.6 [facility] Erythrocyte distribution wid th standard deviationOrdered By: Angelica Sandy on 08-25-2023 Erythrocyte distribution width (RBC) [Entitic vol] 42.4 fL 35.1-43.9 [facility] Erythrocyte sedimentation ra teOrdered By: Angelica Sandy on 08-25-2023 ESR (Bld) [Velocity] 31 mm/h 0-20 [facility] Hematocrit Auto (Bld) [Volum e fraction]Ordered By: Angelica Sandy on 08-25-2023 Hematocrit (Bld) [Volume fraction] 40.4 % 40-54 [facility] Immature granulocytes/100 WB C Auto (Bld)Ordered By: Angelica Sandy on 08-25-2023 Immature granulocytes/100 WBC (Bld) 0.300 % 0.0-0.9 [facility] Comment on above: IG% - Immature Granu locytes (promyelocytes, myelocytes and metamyelocytes) > 1% indicates that a LEFT SHIFT is Present. Laboratory - Chemistry and C hemistry - challengeOrdered By: Angelica Sandy on 08-25-2023 Albumin/Globulin [Mass ratio] 0.9 {ratio} 0.9-2.4 [facility] ALP [Catalytic activity/Vol] 84 U/L 45-117 [facility] ALT [Catalytic activity/Vol] 18 U/L 16-61 [facility] CO2 [Moles/Vol] 29.0 mmol/L 21.0-32.0 [facility] Globulin (S) [Mass/Vol] 3.9 g/dL 2.2-4.2 [facility] Urea nitrogen/Creatinine [Mass ratio] 17.7 mg/mg 10-20 [facility] Laboratory - Hematology and Cell countsOrdered By: Angelica Sandy on 08-25-2023 MCH (RBC) [Entitic mass] 31.9 pg 27.0-32.0 [facility] MCHC (RBC) [Mass/Vol] 33.7 g/dL 32-36 [facility] Nucleated RBC/100 WBC (Bld) [Ratio] 0 % 0-5 [facility] Platelet mean volume (Bld) [Entitic vol] 9.1 fL 6.2-12.0 [facility] Platelets (Bld) [#/Vol] 218 10*3/uL 150-450 [facility] No Panel InformationOrdered By: Angelica Sandy on 08-25-2023 C-Reactive Protein Extended Range 69.50 mg/L 0.0-3.0 [facility] Comment on above: C-Reactive Protein ( CRP) provides useful information for thediagnosis, therapy and monitoring of inflammatory processesand associated diseases. For the evaluation of Relative Riskfor Cardiovascular Disease, a High Sensitivity CRP (HSCRP)should be ordered. Estimated GFR (MDRD) Amer 114 mL/min >60 [facility] Comment on above: GFR Calc Estimated GFR (MDRD) Non-Af Amer 94 mL/min >60 [facility] Comment on above: Non- GFR Calc RBC Auto (Bld) [#/Vol]Ordere d By: Angelica Sandy on 08-25-2023 RBC (Bld) [#/Vol] 4.26 10*6/uL 4.6-6.2 [facility] Serum or plasma calcium carrillo urement (mass/volume)Ordered By: Angelica Sandy on 08-25-2023 Calcium [Mass/Vol] 8.9 mg/dL 8.5-10.1 [facility] Serum or plasma creatinine m easurement (mass/volume)Ordered By: Angelica Sandy on 08-25-2023 Creatinine [Mass/Vol] 0.85 mg/dL 0.70-1.30 [facility] Comment on above: The validity of the calculated GFR & GFRAA in patients over 70 years has not been determined. Clinical correlation is essential. Serum or plasma urea nitroge n measurement (mass/volume)Ordered By: Angelica Sandy on 08-25-2023 Urea nitrogen [Mass/Vol] 15 mg/dL 01-12 [facility] Serum or plasma uric acid me asurement (mass/volume)Ordered By: Angelica Sandy on 08-25-2023 Urate [Mass/Vol] 7.1 mg/dL 3.5-7.2 [facility] Comment on above: The drugs N-Acetylcy steine and Metamizole may falsely depress this assay. Thin prep Papanicolaou smear with manual screeningOrdered By: Angelica Sandy on 08-25-2023 Thin prep Papanicolaou smear with manual screening 3.4 g/dL 3.2-5.0 [facility] Thin prep Papanicolaou smear with manual screening 20 U/L 15-37 [facility] Thin prep Papanicolaou smear with manual screening 2 5-15 [facility] Basophil percentageOrdered B y: Angelica Sandy on 04-14-2023 Bilirubin [Mass/Vol] 0.50 mg/dL 0.20-1.00 [facility] Comment on above: For patients on eltr ombopag therapy, use of Dimension [place] TBIL is not recommended. Chloride [Moles/Vol] 109 mmol/L 98-107 [facility] Cholesterol [Mass/Vol] 147 mg/dL <200 [facility] Comment on above: <200 mg/dL Desirable 200-240 mg/dL Borderline >240 mg/dL High Risk Glucose [Mass/Vol] 98 mg/dL 74-106 [facility] Potassium [Moles/Vol] 4.2 mmol/L 3.5-5.1 [facility] Protein [Mass/Vol] 7.5 g/dL 6.4-8.2 [facility] Sodium [Moles/Vol] 140 mmol/L 136-145 [facility] Triglyceride [Mass/Vol] 135 mg/dL <199 [facility] Comment on above: The drugs N-Acetylcy steine and Metamizole may falsely depress this assay.Serum Triglycerides Reference Interval Normal <150 mg/dL Borderline high 150 - 199 mg/dL High 200 - 499 mg/dL Very High > or = 500 mg/dL Laboratory - Chemistry and C hemistry - challengeOrdered By: Angelica Sandy on 04-14-2023 ALP [Catalytic activity/Vol] 100 U/L 45-117 [facility] ALT [Catalytic activity/Vol] 24 U/L 16-61 [facility] CO2 [Moles/Vol] 28.0 mmol/L 21.0-32.0 [facility] Globulin (S) [Mass/Vol] 4.1 g/dL 2.2-4.2 [facility] Urea nitrogen/Creatinine [Mass ratio] 13.1 mg/mg 10-20 [facility] No Panel InformationOrdered By: Angelica Sandy on 04-14-2023 Estimated GFR (MDRD) Amer 104 mL/min >60 [facility] Comment on above: GFR Calc Estimated GFR (MDRD) Non-Af Amer 86 mL/min >60 [facility] Comment on above: Non- GFR Calc Serum or plasma albumin carrillo urement (mass/volume)Ordered By: Angelica Sandy on 04-14-2023 Albumin [Mass/Vol] 3.4 g/dL 3.2-5.0 [facility] Serum or plasma albumin/glob ulin mass ratioOrdered By: Angelica Sandy on 04-14-2023 Albumin/Globulin [Mass ratio] 0.8 {ratio} 0.9-2.4 [facility] Serum or plasma calcium carrillo urement (mass/volume)Ordered By: Angelica Sandy on 04-14-2023 Calcium [Mass/Vol] 9.0 mg/dL 8.5-10.1 [facility] Serum or plasma cholesterol in HDL measurement (mass/volume)Ordered By: Angelica Sandy on 04-14-2023 Cholesterol in HDL [Mass/Vol] 40 mg/dL >40 [facility] Comment on above: The drugs N-Acetylcy steine and Metamizole may falsely depress this assay. Reference Range HDL <40 mg/dL Low HDL Cholesterol HDL >or= 60 mg/dL High HDL Cholesterol Serum or plasma cholesterol in VLDL measurement (mass/volume)Ordered By: Angelica Sandy on 04-14-2023 Cholesterol in VLDL [Mass/Vol] 27 mg/dL 5-40 [facility] Serum or plasma creatinine m easurement (mass/volume)Ordered By: Angelica Sandy on 04-14-2023 Creatinine [Mass/Vol] 0.91 mg/dL 0.70-1.30 [facility] Comment on above: The validity of the calculated GFR & GFRAA in patients over 70 years has not been determined. Clinical correlation is essential. Serum or plasma low density lipoprotein (LDL) cholesterol measurement (mass/volume)Ordered By: Angelica Sandy on 04-14-2023 Cholesterol in LDL [Mass/Vol] 80 mg/dL 0-130 [facility] Serum or plasma urea nitroge n measurement (mass/volume)Ordered By: Angelica Sandy on 04-14-2023 Urea nitrogen [Mass/Vol] 12 mg/dL -18 [facility] Serum or plasma uric acid me asurement (mass/volume)Ordered By: Angelica Sandy on 04-14-2023 Urate [Mass/Vol] 7.9 mg/dL 3.5-7.2 [facility] Comment on above: The drugs N-Acetylcy steine and Metamizole may falsely depress this assay. Thin prep Papanicolaou smear with manual screeningOrdered By: Angelica Sandy on 04-14-2023 Thin prep Papanicolaou smear with manual screening 18 U/L 15-37 [facility] Thin prep Papanicolaou smear with manual screening 3 5-15 [facility] Absolute lymphocyte countOrd ered By: Wyatt Johnson on 04-02-2023 Lymphocytes Auto (Unsp spec) [#/Vol] 1.14 10*3/uL 0.83-4.51 [facility] Basophil percentageOrdered B y: Wyatt Johnson on 04-02-2023 Basophils/100 WBC (Bld) 0.5 % 0-1 [facility] Chloride [Moles/Vol] 108 mmol/L 98-107 [facility] Eosinophils/100 WBC (Bld) 3.7 % 0-5 [facility] Glucose [Mass/Vol] 101 mg/dL 74-106 [facility] Comment on above: Fasting Glucose resu lt from 100 to 125 mg/dL suggests IMPAIRED HOMEOSTASIS per A.D.A. criteria. Neutrophils (Bld) [#/Vol] 5.2 10*3/uL 2.0-7.7 [facility] Neutrophils/100 WBC (Bld) 68.7 % 47-70 [facility] Potassium [Moles/Vol] 4.0 mmol/L 3.5-5.1 [facility] Sodium [Moles/Vol] 139 mmol/L 136-145 [facility] WBC (Bld) [#/Vol] 7.5 10*3/uL 4.4-11.0 [facility] Blood erythrocytes count (nu mber/volume)Ordered By: Wyatt Johnson on 04-02-2023 RBC (Bld) [#/Vol] 4.09 10*6/uL 4.6-6.2 [facility] Blood hemoglobin measurement (mass/volume)Ordered By: Wyatt Johnson on 04-02-2023 Hemoglobin (Bld) [Mass/Vol] 13.2 g/dL 13.0-16.5 [facility] Blood lymphocytes/100 leukoc ytesOrdered By: Wyatt Johnson on 04-02-2023 Lymphocytes/100 WBC (Bld) 15.2 % 19-41 [facility] Blood monocytes/100 leukocyt esOrdered By: Wyatt Johnson on 04-02-2023 Monocytes/100 WBC (Bld) 11.8 % 0-10 [facility] Blood platelet mean volumeOr dered By: Wyatt Johnson on 04-02-2023 Platelet mean volume (Bld) [Entitic vol] 9.2 fL 6.2-12.0 [facility] Determination of erythrocyte mean corpuscular volume (MCV)Ordered By: Wyatt Johnson on 04-02-2023 MCV (RBC) [Entitic vol] 97.1 fL 80-94 [facility] Hematocrit Auto (Bld) [Volum e fraction]Ordered By: Wyatt Johnson on 04-02-2023 Hematocrit (Bld) [Volume fraction] 39.7 % 40-54 [facility] Influenza virus A and B and SARS-CoV-2 (COVID-19) Ag panel - Upper respiratory specimOrdered By: Wyatt Johnson on 04-02-2023 SARS-CoV-2 (COVID-19) RNA SHAHID+probe Ql (Resp) [facility] Laboratory - Chemistry and C hemistry - challengeOrdered By: Wyatt Johnson on 04-02-2023 CO2 [Moles/Vol] 26.0 mmol/L 21.0-32.0 [facility] Natriuretic peptide B (Bld) [Mass/Vol] 3.9 pg/mL 0-100 [facility] Urea nitrogen/Creatinine [Mass ratio] 12.5 mg/mg 10-20 [facility] Laboratory - Hematology and Cell countsOrdered By: Wyatt Johnson on 04-02-2023 Erythrocyte distribution width (RBC) [Entitic vol] 43.6 fL 35.1-43.9 [facility] Erythrocyte distribution width (RBC) [Ratio] 12.2 % 11.6-14.6 [facility] Immature granulocytes/100 WBC (Bld) 0.100 % 0.0-0.9 [facility] Comment on above: IG% - Immature Granu locytes (promyelocytes, myelocytes and metamyelocytes) > 1% indicates that a LEFT SHIFT is Present. MCH (RBC) [Entitic mass] 32.3 pg 27.0-32.0 [facility] Nucleated RBC/100 WBC (Bld) [Ratio] 0 % 0-5 [facility] MCHC Auto (RBC) [Mass/Vol]Or dered By: Wyatt Johnson on 04-02-2023 MCHC (RBC) [Mass/Vol] 33.2 g/dL 32-36 [facility] No Panel InformationOrdered By: Wyatt Johnson on 04-02-2023 Estimated Creatinine Clearance Calc 66.46 ml/min [facility] Estimated GFR (MDRD) Amer 108 mL/min >60 [facility] Comment on above: GFR Calc Estimated GFR (MDRD) Non-Af Amer 90 mL/min >60 [facility] Comment on above: Non- GFR Calc Ethyl Alcohol Level < 3.0 mg/dL [facility] Comment on above: The serum:whole bloo d ethanol ratio is approximately 1.14and varies slightly with hematocrit. Medical Alcohol reference interval and critical value innon-tolerant individuals; 50 - 100 Impairment 100 Intoxication 100 - 250 Severe Poisoning 250 - 400 Deep/possible fatal coma Thyroid Stimulating Hormone (TSH) 1.25 uIU/mL 0.358-3.74 [facility] Troponin I High Sensitivity 7 pg/mL 3.0-78.0 [facility] Comment on above: Please Note: [place] t Units and Gender Specific Reference Ranges. For more information see Policy Stat Procedure [place] High Sensitivity Troponin (TNIH) and attachments. Platelets bldOrdered By: Vargas Johnson on 04-02-2023 Platelets (Bld) [#/Vol] 191 10*3/uL 150-450 [facility] Serum or plasma calcium carrillo urement (mass/volume)Ordered By: Wyatt Johnson on 04-02-2023 Calcium [Mass/Vol] 8.7 mg/dL 8.5-10.1 [facility] Serum or plasma creatinine m easurement (mass/volume)Ordered By: Wyatt Johnson on 04-02-2023 Creatinine [Mass/Vol] 0.88 mg/dL 0.70-1.30 [facility] Comment on above: The validity of the calculated GFR & GFRAA in patients over 70 years has not been determined. Clinical correlation is essential. Serum or plasma urea nitroge n measurement (mass/volume)Ordered By: Wyatt Johnson on 04-02-2023 Urea nitrogen [Mass/Vol] 11 mg/dL 7-18 [facility] Thin prep Papanicolaou smear with manual screeningOrdered By: Wyatt Johnson on 04-02-2023 Thin prep Papanicolaou smear with manual screening 5 5-15 [facility] Absolute lymphocyte countOrd ered By: Reinier Kingston on 03-16-2023 Lymphocytes Auto (Unsp spec) [#/Vol] 1.37 10*3/uL 0.83-4.51 [facility] Basophil percentageOrdered B y: Reinier Kingston on 03-16-2023 Basophils/100 WBC (Bld) 0.7 % 0-1 [facility] Eosinophils/100 WBC (Bld) 5.9 % 0-5 [facility] Neutrophils (Bld) [#/Vol] 4.1 10*3/uL 2.0-7.7 [facility] Neutrophils/100 WBC (Bld) 60.3 % 47-70 [facility] WBC (Bld) [#/Vol] 6.8 10*3/uL 4.4-11.0 [facility] Blood erythrocytes count (nu mber/volume)Ordered By: Reinier Kingston on 03-16-2023 RBC (Bld) [#/Vol] 3.95 10*6/uL 4.6-6.2 [facility] Blood hemoglobin measurement (mass/volume)Ordered By: Reinier Kingston on 03-16-2023 Hemoglobin (Bld) [Mass/Vol] 12.9 g/dL 13.0-16.5 [facility] Blood lymphocytes/100 leukoc ytesOrdered By: Reinier Kingston on 03-16-2023 Lymphocytes/100 WBC (Bld) 20.3 % 19-41 [facility] Blood monocytes/100 leukocyt esOrdered By: Reinier Kingston on 03-16-2023 Monocytes/100 WBC (Bld) 12.7 % 0-10 [facility] Blood platelet mean volumeOr dered By: Reinier Kingston on 03-16-2023 Platelet mean volume (Bld) [Entitic vol] 8.7 fL 6.2-12.0 [facility] Determination of erythrocyte mean corpuscular volume (MCV)Ordered By: Reinier Kingston on 03-16-2023 MCV (RBC) [Entitic vol] 99.0 fL 80-94 [facility] Hematocrit Auto (Bld) [Volum e fraction]Ordered By: Reinier Kingston on 03-16-2023 Hematocrit (Bld) [Volume fraction] 39.1 % 40-54 [facility] Laboratory - Hematology and Cell countsOrdered By: Reinier Kingston on 03-16-2023 Erythrocyte distribution width (RBC) [Entitic vol] 45.0 fL 35.1-43.9 [facility] Erythrocyte distribution width (RBC) [Ratio] 12.5 % 11.6-14.6 [facility] Immature granulocytes/100 WBC (Bld) 0.100 % 0.0-0.9 [facility] Comment on above: IG% - Immature Granu locytes (promyelocytes, myelocytes and metamyelocytes) > 1% indicates that a LEFT SHIFT is Present. MCH (RBC) [Entitic mass] 32.7 pg 27.0-32.0 [facility] Nucleated RBC/100 WBC (Bld) [Ratio] 0 % 0-5 [facility] MCHC Auto (RBC) [Mass/Vol]Or dered By: Reinier Kingston on 03-16-2023 MCHC (RBC) [Mass/Vol] 33.0 g/dL 32-36 [facility] Platelets bldOrdered By: Jalen Kingston on 03-16-2023 Platelets (Bld) [#/Vol] 256 10*3/uL 150-450 [facility] Serum or plasma C reactive p rotein measurement (mass/volume)Ordered By: Reinier Kingston on 03-16-2023 CRP [Mass/Vol] 6.12 mg/L 0.0-3.0 [facility] Comment on above: C-Reactive Protein ( CRP) provides useful information for thediagnosis, therapy and monitoring of inflammatory processesand associated diseases. For the evaluation of Relative Riskfor Cardiovascular Disease, a High Sensitivity CRP (HSCRP)should be ordered. Serum or plasma uric acid me asurement (mass/volume)Ordered By: Reinier Kingston on 03-16-2023 Urate [Mass/Vol] 8.6 mg/dL 3.5-7.2 [facility] Comment on above: The drugs N-Acetylcy steine and Metamizole may falsely depress this assay. Absolute lymphocyte counton 01-20-2022 Lymphocytes Auto (Unsp spec) [#/Vol] 1.49 10*3/uL 0.83-4.51 [facility] Work Phone: Basophil percentageon 2021 Basophils/100 WBC (Bld) 0.6 % 0-1 [facility] Work Phone: Bilirubin [Mass/Vol] 0.60 mg/dL 0.20-1.00 [facility] Work Phone: Comment on above: For patients on eltr ombopag therapy, use of Dimension [place] TBIL is not recommended. Chloride [Moles/Vol] 107 mmol/L 98-107 [facility] Work Phone: Cholesterol [Mass/Vol] 150 mg/dL <200 [facility] Work Phone: Comment on above: <200 mg/dL Desirable 200-240 mg/dL Borderline >240 mg/dL High Risk Eosinophils/100 WBC (Bld) 3.2 % 0-5 [facility] Work Phone: Glucose [Mass/Vol] 93 mg/dL 74-106 [facility] Work Phone: Neutrophils (Bld) [#/Vol] 3.8 10*3/uL 2.0-7.7 [facility] Work Phone: Neutrophils/100 WBC (Bld) 60.7 % 47-70 [facility] Work Phone: Potassium [Moles/Vol] 4.2 mmol/L 3.5-5.1 [facility] Work Phone: Protein [Mass/Vol] 7.2 g/dL 6.4-8.2 [facility] Work Phone: Sodium [Moles/Vol] 139 mmol/L 136-145 [facility] Work Phone: Triglyceride [Mass/Vol] 189 mg/dL <199 [facility] Work Phone: Comment on above: The drugs N-Acetylcy steine and Metamizole may falsely depress this assay.Serum Triglycerides Reference Interval Normal <150 mg/dL Borderline high 150 - 199 mg/dL High 200 - 499 mg/dL Very High > or = 500 mg/dL WBC (Bld) [#/Vol] 6.2 10*3/uL 4.4-11.0 [facility] Work Phone: Blood erythrocytes count (nu mber/volume)on 01-20-2022 RBC (Bld) [#/Vol] 4.11 10*6/uL 4.6-6.2 [facility] Work Phone: Blood hemoglobin measurement (mass/volume)on 01-20-2022 Hemoglobin (Bld) [Mass/Vol] 13.3 g/dL 13.0-16.5 [facility] Work Phone: Blood lymphocytes/100 leukoc yteson 01-20-2022 Lymphocytes/100 WBC (Bld) 23.9 % 19-41 [facility] Work Phone: Blood monocytes/100 leukocyt eson 07-26-2022 Monocytes/100 WBC (Bld) 11.4 % 0-10 [facility] Work Phone: Blood platelet mean volumeon 01-20-2022 Platelet mean volume (Bld) [Entitic vol] 8.9 fL 6.2-12.0 [facility] Work Phone: Determination of erythrocyte mean corpuscular volume (MCV)on 01-20-2022 MCV (RBC) [Entitic vol] 96.6 fL 80-94 [facility] Work Phone: Hematocrit Auto (Bld) [Volum e fraction]on 01-20-2022 Hematocrit (Bld) [Volume fraction] 39.7 % 40-54 [facility] Work Phone: Laboratory - Chemistry and C hemistry - challengeon 01-20-2022 ALP [Catalytic activity/Vol] 82 U/L 45-117 [facility] Work Phone: ALT [Catalytic activity/Vol] 21 U/L 16-61 [facility] Work Phone: CO2 [Moles/Vol] 28.0 mmol/L 21.0-32.0 [facility] Work Phone: Globulin (S) [Mass/Vol] 3.6 g/dL 2.2-4.2 [facility] Work Phone: Urea nitrogen/Creatinine [Mass ratio] 16.7 mg/mg 10-20 [facility] Work Phone: Laboratory - Hematology and Cell countson 01-20-2022 Erythrocyte distribution width (RBC) [Entitic vol] 42.9 fL 35.1-43.9 [facility] Work Phone: Erythrocyte distribution width (RBC) [Ratio] 12.1 % 11.6-14.6 [facility] Work Phone: Immature granulocytes/100 WBC (Bld) 0.200 % 0.0-0.9 [facility] Work Phone: Comment on above: IG% - Immature Granu locytes (promyelocytes, myelocytes and metamyelocytes) > 1% indicates that a LEFT SHIFT is Present. MCH (RBC) [Entitic mass] 32.4 pg 27.0-32.0 [facility] Work Phone: Nucleated RBC/100 WBC (Bld) [Ratio] 0 % 0-5 [facility] Work Phone: MCHC Auto (RBC) [Mass/Vol]on 01-20-2022 MCHC (RBC) [Mass/Vol] 33.5 g/dL 32-36 [facility] Work Phone: No Panel Informationon 01-20 Estimated GFR (MDRD) Amer 99 mL/min >60 [facility] Work Phone: Comment on above: GFR Calc Estimated GFR (MDRD) Non-Af Amer 82 mL/min >60 [facility] Work Phone: Comment on above: Non- GFR Calc Thyroid Stimulating Hormone (TSH) 1.92 uIU/mL 0.358-3.74 [facility] Work Phone: Vitamin D 25-Hydroxy 43.2 ng/mL [facility] Work Phone: Comment on above: Vitamin D 25(OH) Sta tus Range Deficiency <20 ng/mL (50nmol/L) Insufficiency 20 - 30 ng/mL (50 - 75 nmol/L) Sufficiency 30 - 100 ng/mL (75 - 250 nmol/L) Toxicity >100 ng/mL (>250 nmol/L) Platelets bldon 01-20-2022 Platelets (Bld) [#/Vol] 233 10*3/uL 150-450 [facility] Work Phone: Serum or plasma albumin carrillo urement (mass/volume)on 01-20-2022 Albumin [Mass/Vol] 3.6 g/dL 3.2-5.0 [facility] Work Phone: Serum or plasma albumin/glob ulin mass ratioon 01-20-2022 Albumin/Globulin [Mass ratio] 1.0 {ratio} 0.9-2.4 [facility] Work Phone: Serum or plasma calcium carrillo urement (mass/volume)on 01-20-2022 Calcium [Mass/Vol] 9.0 mg/dL 8.5-10.1 [facility] Work Phone: Serum or plasma cholesterol in HDL measurement (mass/volume)on 01-20-2022 Cholesterol in HDL [Mass/Vol] 42 mg/dL >40 [facility] Work Phone: Comment on above: The drugs N-Acetylcy steine and Metamizole may falsely depress this assay. Reference Range HDL <40 mg/dL Low HDL Cholesterol HDL >or= 60 mg/dL High HDL Cholesterol Serum or plasma cholesterol in VLDL measurement (mass/volume)on 01-20-2022 Cholesterol in VLDL [Mass/Vol] 38 mg/dL 5-40 [facility] Work Phone: Serum or plasma creatinine m easurement (mass/volume)on 01-20-2022 Creatinine [Mass/Vol] 0.96 mg/dL 0.70-1.30 [facility] Work Phone: Comment on above: The validity of the calculated GFR & GFRAA in patients over 70 years has not been determined. Clinical correlation is essential. Serum or plasma low density lipoprotein (LDL) cholesterol measurement (mass/volume)on 01-20-2022 Cholesterol in LDL [Mass/Vol] 70 mg/dL 0-130 [facility] Work Phone: Serum or plasma urea nitroge n measurement (mass/volume)on 01-20-2022 Urea nitrogen [Mass/Vol] 16 mg/dL 7-18 [facility] Work Phone: Thin prep Papanicolaou smear with manual screeningon 01-20-2022 Thin prep Papanicolaou smear with manual screening 21 U/L 15-37 [facility] Work Phone: Thin prep Papanicolaou smear with manual screening 4 5-15 [facility] Work Phone: No Panel Informationon 10-02 Prostate Specific Antigen Screen 0.28 ng/mL 0.00-4.00 [facility] Work Phone: Comment on above: This test was perfor med using the TPSA assay method for [employer] chemistry system. Values obtained with differentassay methods cannot be used interchangably.When changing PSA assays in the course of monitoring apatient, additional sequential testing should be carriedout to confirm baseline values. XR HAND MINIMUM 3 VIEWS LEFT on 04-30-2021 XR HAND MINIMUM 3 VIEWS LEFT ORIGINAL EXAMINATION: THREE XRAY VIEWS OF THE LEFT HAND04/30/2021 9:05 am HAND 3 VIEWS LEFT COMPARISON: None HISTORY: ORDERING SYSTEM PROVIDED HISTORY: Reason for Exam: pain and deformity FINDINGS: No acute fracture or dislocation is identified. Hypertrophic spurring is seen at the 1st carpometacarpal joint. Asymmetric areas of joint space loss seen in the 2nd and 3rd metacarpal phalangeal joints. There are mild spurs at the distal interphalangeal joints. Small ulnar styloid erosions identified. There is no fracture. 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 Interpreted by: Dilshad Ortega MD Preliminary Report By: Dilshad Ortega MD Electronically signed By Dilshad Ortega MD Dictated Date: 04/30/2021 10:47:49 AM Prelim Date: 04/30/2021 10:49:01 AM Sign Date: 04/30/2021 10:49:01 AM Ordering Provider: BENY Bautista [facility] ([place]) .Auto Diffon 04-21-2021 Basophil, Absolute 0.00 10 3/mcL Normal 0.00-0.19 [facility] ([place]) Comment on above: Performed By: #### C ROLO CARBONE, ANEU, CMP, LIPID, PSA, GFR #### [address] [address] Basophils/100 WBC (Bld) 0.5 % Normal 0.0-2.5 [facility] ([place]) Comment on above: Performed By: #### C ROLO CARBONE, ANEU, CMP, LIPID, PSA, GFR #### [id number] [place], [place] [address] Eosinophil, Absolute 0.20 10 3/mcL Normal 0.00-0.40 [facility] ([place]) Comment on above: Performed By: #### C BC, ADIFF, ANEU, CMP, LIPID, PSA, GFR #### [address] [address] Eosinophils/100 WBC (Bld) 2.3 % Normal 0.0-7.0 [facility] ([place]) Comment on above: Performed By: #### C BC, ADIFF, ANEU, CMP, LIPID, PSA, GFR #### [address] [address] Lymphocyte, Absolute 1.60 10 3/mcL Normal 0.77-3.85 [facility] ([place]) Comment on above: Performed By: #### C BC, ADIFF, ANEU, CMP, LIPID, PSA, GFR #### [address] [address] Lymphocytes/100 WBC (Bld) 23.5 % Normal 10.0-50.0 [facility] ([place]) Comment on above: Performed By: #### C BC, ADIFF, ANEU, CMP, LIPID, PSA, GFR #### [address] [address] Monocyte, Absolute 0.60 10 3/mcL Normal 0.15-1.00 [facility] ([place]) Comment on above: Performed By: #### C BC, ADIFF, ANEU, CMP, LIPID, PSA, GFR #### [address] [address] Monocytes/100 WBC (Bld) 9.2 % Normal 1.7-13.0 [facility] ([place]) Comment on above: Performed By: #### C BC, ADIFF, ANEU, CMP, LIPID, PSA, GFR #### [address] [address] Neutrophils/100 WBC (Bld) 64.5 % Normal 37.0-80.0 [facility] ([place]) Comment on above: Performed By: #### C BC, ADIFF, ANEU, CMP, LIPID, PSA, GFR #### [address] [address] .GFRon 04-21-2021 GFR 81 ml/min/1.73sqm Normal [facility] ([place]) Comment on above: Result Comment: GFR Population mean for , Non- Americans Ages 20-29 = 116 mL/min/1.73 sq.m. Ages 30-39 = 107 mL/min/1.73 sq.m. Ages 40-49 = 99 mL/min/1.73 sq.m. Ages 50-59 = 93 mL/min/1.73 sq.m. Ages 60-69 = 85 mL/min/1.73 sq.m. Ages 70+ = 75 mL/min/1.73 sq.m. Chronic Kidney Disease: Less than 60 mL/min/1.73 square meters End Stage Renal Disease: Less than 15 mL/min/1.73 square meters Performed By: #### C BC, ADIFF, ANEU, CMP, LIPID, PSA, GFR #### [address] [address] GFR Non- 66 ml/min/1.73sqm Normal [facility] ([place]) Comment on above: Result Comment: GFR Population mean for , Non- Americans Ages 20-29 = 116 mL/min/1.73 sq.m. Ages 30-39 = 107 mL/min/1.73 sq.m. Ages 40-49 = 99 mL/min/1.73 sq.m. Ages 50-59 = 93 mL/min/1.73 sq.m. Ages 60-69 = 85 mL/min/1.73 sq.m. Ages 70+ = 75 mL/min/1.73 sq.m. Chronic Kidney Disease: Less than 60 mL/min/1.73 square meters End Stage Renal Disease: Less than 15 mL/min/1.73 square meters Performed By: #### C BC, ADIFF, ANEU, CMP, LIPID, PSA, GFR #### [address] [address] .NEUABSon 04-21-2021 Neutrophil, Absolute 4.30 10 3/mcL Normal 2.85-6.16 [facility] ([place]) Comment on above: Performed By: #### C BC, ADIFF, ANEU, CMP, LIPID, PSA, GFR #### [address] [address] CBCon 04-21-2021 Erythrocyte distribution width (RBC) [Ratio] 12.2 % Normal 11.5-14.5 [facility] ([place]) Comment on above: Performed By: #### C BC, ADIFF, ANEU, CMP, LIPID, PSA, GFR #### [address] [address] Hematocrit (Bld) [Volume fraction] 41.9 % Low 42.0-52.0 [facility] ([place]) Comment on above: Performed By: #### C BC, ADIFF, ANEU, CMP, LIPID, PSA, GFR #### [address] [address] Hgb 14.5 G/dL Normal 14.0-18.0 [facility] ([place] Comment on above: Performed By: #### C BC, ADIFF, ANEU, CMP, LIPID, PSA, GFR #### [address] [address] MCH (RBC) [Entitic mass] 34.1 pg High 27.0-31.2 [facility] ([place] Comment on above: Performed By: #### C BC, ADIFF, ANEU, CMP, LIPID, PSA, GFR #### [address] [address] MCHC 34.5 G/dL Normal 31.8-35.4 [facility] ([place] Comment on above: Performed By: #### C BC, ADIFF, ANEU, CMP, LIPID, PSA, GFR #### [address] [address] MCV (RBC) [Entitic vol] 98.7 fL High 80.0-94.0 [facility] ([place] Comment on above: Performed By: #### C BC, ADIFF, ANEU, CMP, LIPID, PSA, GFR #### [address] [address] Platelet 248 10 3/mcL Normal 130-400 [facility] ([place]) Comment on above: Performed By: #### C BC, ADIFF, ANEU, CMP, LIPID, PSA, GFR #### [address] [address] Platelet mean volume (Bld) [Entitic vol] 7.2 fL Low 7.4-10.4 [facility] ([place] Comment on above: Performed By: #### C BC, ADIFF, ANEU, CMP, LIPID, PSA, GFR #### [address] [address] RBC 4.25 10 6/mcL Normal 4.04-6.13 [facility] ([place] Comment on above: Performed By: #### C BC, ADIFF, ANEU, CMP, LIPID, PSA, GFR #### [address] [address] WBC 6.70 10 3/mcL Normal 4.60-10.80 [facility] ([place]) Comment on above: Performed By: #### C BC, ADIFF, ANEU, CMP, LIPID, PSA, GFR #### [address] [address] CMPon 04-21-2021 Albumin Level 3.8 G/dL Normal 3.4-4.8 [facility] ([place] Comment on above: Performed By: #### C BC, ADIFF, ANEU, CMP, LIPID, PSA, GFR #### [address] [address] Albumin/Globulin [Mass ratio] 1.2 {ratio} Normal 1.1-2.5 [facility] ([place] Comment on above: Performed By: #### C BC, ADIFF, ANEU, CMP, LIPID, PSA, GFR #### [address] [address] ALP [Catalytic activity/Vol] 86 U/L Normal 40-135 [facility] ([place] Comment on above: Performed By: #### C BC, ADIFF, ANEU, CMP, LIPID, PSA, GFR #### [address] [address] ALT [Catalytic activity/Vol] 26 U/L Normal 16-63 [facility] ([place] Comment on above: Performed By: #### C BC, ADIFF, ANEU, CMP, LIPID, PSA, GFR #### [address] [address] AST [Catalytic activity/Vol] 23 U/L Normal 10-40 [facility] ([place] Comment on above: Performed By: #### C BC, ADIFF, ANEU, CMP, LIPID, PSA, GFR #### [address] [address] Bili Total 0.4 mg/dL Normal 0.2-1.0 [facility] ([place]) Comment on above: Result Comment: Use of this assay is not recommended for patients undergoing treatment with eltrombopag due to the potential for falsely elevated results. Performed By: #### C BC, ADIFF, ANEU, CMP, LIPID, PSA, GFR #### [address] [address] BUN/Creatinine Ratio 11 ratio Normal 7-27 [facility] ([place]) Comment on above: Performed By: #### C BC, ADIFF, ANEU, CMP, LIPID, PSA, GFR #### [address] [address] Calcium [Mass/Vol] 8.9 mg/dL Normal 8.4-10.2 [facility] ([place]) Comment on above: Performed By: #### C BC, ADIFF, ANEU, CMP, LIPID, PSA, GFR #### [address] [address] Chloride [Moles/Vol] 104 mmol/L Normal 98-107 [facility] ([place]) Comment on above: Performed By: #### C BC, ADIFF, ANEU, CMP, LIPID, PSA, GFR #### [address] [address] CO2 [Moles/Vol] 28 mmol/L Normal 23-31 [facility] ([place] Comment on above: Performed By: #### C BC, ADIFF, ANEU, CMP, LIPID, PSA, GFR #### [address] [address] Creatinine [Mass/Vol] 1.09 mg/dL Normal 0.70-1.30 [facility] ([place]) Comment on above: Performed By: #### C BC, ADIFF, ANEU, CMP, LIPID, PSA, GFR #### [address] [address] Electrolyte Balance 10.0 mEq/L Normal [facility] ([place]) Comment on above: Performed By: #### C BC, ADIFF, ANEU, CMP, LIPID, PSA, GFR #### [address] [address] Globulin 3.3 G/dL Normal [facility] ([place]) Comment on above: Performed By: #### C BC, ADIFF, ANEU, CMP, LIPID, PSA, GFR #### [address] [address] Glucose [Mass/Vol] 105 mg/dL Normal 83-110 [facility] ([place]) Comment on above: Performed By: #### C BC, ADIFF, ANEU, CMP, LIPID, PSA, GFR #### [address] [address] Potassium [Moles/Vol] 4.7 mmol/L Normal 3.5-5.1 [facility] ([place]) Comment on above: Performed By: #### C BC, ADIFF, ANEU, CMP, LIPID, PSA, GFR #### [address] [address] Sodium [Moles/Vol] 142 mmol/L Normal 136-145 [facility] ([place]) Comment on above: Performed By: #### C BC, ADIFF, ANEU, CMP, LIPID, PSA, GFR #### [address] [address] Total Protein 7.1 G/dL Normal 6.4-8.2 [facility] ([place]) Comment on above: Performed By: #### C BC, ADIFF, ANEU, CMP, LIPID, PSA, GFR #### [address] [address] Urea nitrogen [Mass/Vol] 12 mg/dL Normal 7-18 [facility] ([place]) Comment on above: Performed By: #### C BC, ADIFF, ANEU, CMP, LIPID, PSA, GFR #### [id number] [place], [place] [address] LABORATORYOrdered By: Paty Diaz on 04-21-2021 Albumin BCP dye [Mass/Vol] 3.8 G/dL Invalid Interpretation Code 3.4 - 4.8 G/dL AO ADM SS Albumin/Globulin [Mass ratio] 1.2 {ratio} Invalid Interpretation Code 1.1 - 2.5 ratio AO ADM SS ALP [Catalytic activity/Vol] 86 U/L Invalid Interpretation Code 40 - 135 U/L AO ADM SS ALT With P-5'-P [Catalytic activity/Vol] 26 U/L Invalid Interpretation Code 16 - 63 U/L AO ADM SS AST With P-5'-P [Catalytic activity/Vol] 23 U/L Invalid Interpretation Code 10 - 40 U/L AO ADM SS Basophil, Absolute 0.00 103/mcL Invalid Interpretation Code 0.00 - 0.19 10^3/mcL AO Auto Heme SS Basophils/100 WBC (Bld) 0.5 % Invalid Interpretation Code 0.0 - 2.5 % AO Auto Heme SS Bilirubin [Mass/Vol] 0.4 mg/dL Invalid Interpretation Code 0.2 - 1.0 mg/dL AO ADM SS Calcium [Mass/Vol] 8.9 mg/dL Invalid Interpretation Code 8.4 - 10.2 mg/dL AO ADM SS Chloride [Moles/Vol] 104 mmol/L Invalid Interpretation Code 98 - 107 mmol/L AO ADM SS Cholesterol [Mass/Vol] 192 mg/dL Invalid Interpretation Code 0 - 200 mg/dL AO ADM SS Cholesterol in HDL [Mass/Vol] 49 mg/dL Invalid Interpretation Code 40 - 60 mg/dL AO ADM SS Cholesterol in LDL [Mass/Vol] 102 mg/dL Invalid Interpretation Code 0 - 130 mg/dL AO ADM SS CO2 [Moles/Vol] 28 mmol/L Invalid Interpretation Code 23 - 31 mmol/L AO ADM SS Creatinine [Mass/Vol] 1.09 mg/dL Invalid Interpretation Code 0.70 - 1.30 mg/dL AO ADM SS Electrolyte Balance 10.0 mEq/L Invalid Interpretation Code AO ADM SS Eosinophil, Absolute 0.20 103/mcL Invalid Interpretation Code 0.00 - 0.40 10^3/mcL AO Auto Heme SS Eosinophils/100 WBC (Bld) 2.3 % Invalid Interpretation Code 0.0 - 7.0 % AO Auto Heme SS Erythrocyte distribution width (RBC) [Ratio] 12.2 % Invalid Interpretation Code 11.5 - 14.5 % AO Auto Heme SS Globulin 3.3 G/dL Invalid Interpretation Code AO ADM SS Glucose [Mass/Vol] 105 mg/dL Invalid Interpretation Code 83 - 110 mg/dL AO ADM SS Hematocrit (Bld) [Volume fraction] 41.9 % Invalid Interpretation Code 42.0 - 52.0 % AO Auto Heme SS Hemoglobin (Bld) [Mass/Vol] 14.5 G/dL Invalid Interpretation Code 14.0 - 18.0 G/dL AO Auto Heme SS Lymphocyte, Absolute 1.60 103/mcL Invalid Interpretation Code 0.77 - 3.85 10^3/mcL AO Auto Heme SS Lymphocytes/100 WBC (Bld) 23.5 % Invalid Interpretation Code 10.0 - 50.0 % AO Auto Heme SS MCH (RBC) [Entitic mass] 34.1 pg Invalid Interpretation Code 27.0 - 31.2 pg AO Auto Heme SS MCHC (RBC) [Mass/Vol] 34.5 G/dL Invalid Interpretation Code 31.8 - 35.4 G/dL AO Auto Heme SS MCV (RBC) [Entitic vol] 98.7 fL Invalid Interpretation Code 80.0 - 94.0 fL AO Auto Heme SS Monocyte, Absolute 0.60 103/mcL Invalid Interpretation Code 0.15 - 1.00 10^3/mcL AO Auto Heme SS Monocytes/100 WBC (Bld) 9.2 % Invalid Interpretation Code 1.7 - 13.0 % AO Auto Heme SS Neutrophil, Absolute 4.30 103/mcL Invalid Interpretation Code 2.85 - 6.16 10^3/mcL AO Auto Heme SS Neutrophils/100 WBC (Bld) 64.5 % Invalid Interpretation Code 37.0 - 80.0 % AO Auto Heme SS Platelet mean volume (Bld) [Entitic vol] 7.2 fL Invalid Interpretation Code 7.4 - 10.4 fL AO Auto Heme SS Platelets (Bld) [#/Vol] 248 103/mcL Invalid Interpretation Code 130 - 400 10^3/mcL AO Auto Heme SS Potassium [Moles/Vol] 4.7 mmol/L Invalid Interpretation Code 3.5 - 5.1 mmol/L AO ADM SS Prostate specific Ag [Mass/Vol] 0.55 ng/mL Invalid Interpretation Code 0.00 - 4.00 ng/mL AO ADM SS Protein [Mass/Vol] 7.1 G/dL Invalid Interpretation Code 6.4 - 8.2 G/dL AO ADM SS RBC (Bld) [#/Vol] 4.25 106/mcL Invalid Interpretation Code 4.04 - 6.13 10^6/mcL AO Auto Heme SS Sodium [Moles/Vol] 142 mmol/L Invalid Interpretation Code 136 - 145 mmol/L AO ADM SS Triglyceride [Mass/Vol] 206 mg/dL Invalid Interpretation Code 0 - 150 mg/dL AO ADM SS Urea nitrogen [Mass/Vol] 12 mg/dL Invalid Interpretation Code 7 - 18 mg/dL AO ADM SS Urea nitrogen/Creatinine [Mass ratio] 11 ratio Invalid Interpretation Code 7 - 27 ratio AO ADM SS WBC (Bld) [#/Vol] 6.70 103/mcL Invalid Interpretation Code 4.60 - 10.80 10^3/mcL AO Auto Heme SS LABORATORYOrdered By: SYSTEM SYSTEM on 04-21-2021 GFR 81 ml/min/1.73sqm Invalid Interpretation Code AO Chemistry S GFR Non- 66 ml/min/1.73sqm Invalid Interpretation Code AO Chemistry S LIPIDon 04-21-2021 Cholesterol [Mass/Vol] 192 mg/dL Normal 0-200 [facility] ([place]) Comment on above: Result Comment: Chol esterol Reference Interval: Less than 200 Desirable 200-239 Borderline high risk 240 and above High risk Performed By: #### C ROLO CARBONE, ANEU, CMP, LIPID, PSA, GFR #### [id number] [place], [place] [address] Cholesterol in HDL [Mass/Vol] 49 mg/dL Normal 40-60 [facility] ([place]) Comment on above: Performed By: #### C RAF, ROLO, ANEU, CMP, LIPID, PSA, GFR #### [id number] [place], [place] [address] Cholesterol in LDL [Mass/Vol] 102 mg/dL Normal 0-130 [facility] ([place]) Comment on above: Performed By: #### C BC, ADIFF, ANEU, CMP, LIPID, PSA, GFR #### [id number] [place], [place] [address] Triglyceride [Mass/Vol] 206 mg/dL High 0-150 [facility] ([place]) Comment on above: Result Comment: Trig lyceride Reference Interval: Less than 150 Normal 150-199 Borderline high risk 200-499 High risk 500 or higher Very high risk Performed By: #### C BC, ADIFF, ANEU, CMP, LIPID, PSA, GFR #### [id number] [place], [place] [address] PSAon 04-21-2021 Prostate Specific Antigen 0.55 ng/mL Normal 0.00-4.00 [facility] ([place]) Comment on above: Performed By: #### C BC, ADIFF, ANEU, CMP, LIPID, PSA, GFR #### [id number] [place], [place] [address] Vital Signs Date Time Vital Sign Value Performing Clinician Porfirio meza 11-13-2024 08:36-0400 Body height 175.[address] Angelica Sandy MD Work Phone: [facility] 11-13-2024 08:36-0400 Body mass index (BMI) [Ratio] 24.2 kg/m2 Dr. Angelica Sandy MD Work Phone: [facility] 11-13-2024 08:36-0400 Body temperature 98.4 [degF] Dr. Angelica Sandy MD Work Phone: [facility] 11-13-2024 08:36-0400 Body weight 74.[address] Angelica Sandy MD Work Phone: [facility] 11-13-2024 08:36-0400 Diastolic blood pressure 73 mm[Hg] Dr. Angelica Sandy MD Work Phone: [facility] 11-13-2024 08:36-0400 Heart rate 77 /min Dr. Angelica Sandy MD Work Phone: [facility] 11-13-2024 08:36-0400 Respiratory rate 16 /min Dr. Angelica Sandy MD Work Phone: [facility] 11-13-2024 08:36-0400 SaO2% (BldA) [Mass fraction] 97 % Dr. Angelica Sandy MD Work Phone: [facility] 11-13-2024 08:36-0400 Systolic blood pressure 137 mm[Hg] Dr. Angelica Sandy MD Work Phone: [facility] 08-24-2023 08:53-0500 Body height 167.[address] Angelica Sandy Work Phone: [facility] 08-24-2023 08:53-0500 Body mass index (BMI) [Ratio] 30.2 kg/m2 Dr. Angelica Sandy Work Phone: [facility] 08-24-2023 08:53-0500 Body temperature 98.4 [degF] Dr. Angelica Sandy Work Phone: [facility] 08-24-2023 08:53-0500 Body weight 84.[address] Angelica Sandy Work Phone: [facility] 08-24-2023 08:53-0500 Diastolic blood pressure 82 mm[Hg] Dr. Angelica Sandy Work Phone: [facility] 08-24-2023 08:53-0500 Heart rate 84 /min Dr. Angelica Sandy Work Phone: [facility] 08-24-2023 08:53-0500 Respiratory rate 15 /min Dr. Angelica Sandy Work Phone: [facility] 08-24-2023 08:53-0500 SaO2% (BldA) [Mass fraction] 95 % Dr. Angelica Sandy Work Phone: [facility] 08-24-2023 08:53-0500 Systolic blood pressure 143 mm[Hg] Dr. Angelica Sandy Work Phone: [facility] 04-02-2023 16:50-0400 Diastolic blood pressure 86 mm[Hg] Dr. Angelica Sandy Work Phone: [facility] 04-02-2023 16:50-0400 Heart rate 70 /min Dr. Angelica Sandy Work Phone: [facility] 04-02-2023 16:50-0400 Respiratory rate 16 /min Dr. Angelica Sandy Work Phone: [facility] 04-02-2023 16:50-0400 SaO2% (BldA) [Mass fraction] 93 % Dr. Angelica Sandy Work Phone: [facility] 04-02-2023 16:50-0400 Systolic blood pressure 158 mm[Hg] Dr. Angelica Sandy Work Phone: [facility] 04-02-2023 15:06-0400 Body height 167.[address] Angelica Sandy Work Phone: [facility] 04-02-2023 15:06-0400 Body mass index (BMI) [Ratio] 29.4 kg/m2 Dr. Angelica Sandy Work Phone: [facility] 04-02-2023 15:06-0400 Body temperature 97.5 [degF] Dr. Angelica Sandy Work Phone: [facility] 04-02-2023 15:06-0400 Body weight 82.[address] Angelica Sandy Work Phone: [facility] 03-25-2023 10:04-0400 Body mass index (BMI) [Ratio] 31.4 kg/m2 Dr. Angelica Sandy Work Phone: [facility] 03-25-2023 10:04-0400 Body temperature 98.3 [degF] Dr. Angelica Sandy Work Phone: [facility] 03-25-2023 10:04-0400 Body weight 83.[address] Angelica Sandy Work Phone: [facility] 03-25-2023 10:04-0400 Diastolic blood pressure 86 mm[Hg] Dr. Angelica Sandy Work Phone: [facility] 03-25-2023 10:04-0400 Heart rate 79 /min Dr. Angelica Sandy Work Phone: [facility] 03-25-2023 10:04-0400 Respiratory rate 16 /min Dr. Angelica Sandy Work Phone: [facility] 03-25-2023 10:04-0400 SaO2% (BldA) [Mass fraction] 93 % Dr. Angelica Sandy Work Phone: [facility] 03-25-2023 10:04-0400 Systolic blood pressure 133 mm[Hg] Dr. Angelica Sandy Work Phone: [facility] 03-15-2023 14:08-0400 Body height 162.[address] Angelica Sandy Work Phone: [facility] 03-15-2023 14:08-0400 Body mass index (BMI) [Ratio] 31 kg/m2 Dr. Angelica Sandy Work Phone: [facility] 03-15-2023 14:08-0400 Body weight 82.[address] Angelica Sandy Work Phone: [facility] 01-19-2022 08:34-0400 Body height 162.[address] Beny Nixon Work Phone: [facility] Work Phone: 01-19-2022 08:34-0400 Body mass index (BMI) [Ratio] 31.1 kg/m2 Dr. Beny Nixon Work Phone: [facility] Work Phone: 01-19-2022 08:34-0400 Body temperature 97.3 [degF] Dr. Beny Nixon Work Phone: [facility] Work Phone: 01-19-2022 08:34-0400 Body weight 82.[address] Beny Nixon Work Phone: [facility] Work Phone: 01-19-2022 08:34-0400 Diastolic blood pressure 72 mm[Hg] Dr. Beny Nixon Work Phone: [facility] Work Phone: 01-19-2022 08:34-0400 Heart rate 51 /min Dr. Beny Nixon Work Phone: [facility] Work Phone: 01-19-2022 08:34-0400 Respiratory rate 16 /min Dr. Beny Nixon Work Phone: [facility] Work Phone: 01-19-2022 08:34-0400 SaO2% (BldA) [Mass fraction] 97 % Dr. Beny Nixon Work Phone: [facility] Work Phone: 01-19-2022 08:34-0400 Systolic blood pressure 128 mm[Hg] Dr. Beny Nixon Work Phone: [facility] Work Phone: Encounters Encounter Date Encounter Type Care Provider Facility Start: 11-13-2024 End: 11-13-[address] Angelica Sandy MD -[facility] Work Phone: Start: 11-13-2024 End: 11-13-[address] Angelica Sandy MD Work Phone: [facility] Work Phone: Start: 11-08-2024 End: 11-08-[address] Angelica Sandy MD Work Phone: [facility] Work Phone: Start: 11-08-2024 End: 11-08-[address] Angelica Sandy MD -Laboratory Work Phone: Start: 11-08-2024 End: 11-08-2024 ambulatory Angelica Sandy Facility:[facility] Start: 11-25-2023 End: 11-26-2023 ambulatory Angelica Sandy Facility:[facility] Start: 10-12-2023 End: 10-12-[address] Angelica Sandy Work Phone: [facility] Work Phone: Start: 10-12-2023 End: 10-12-[address] [facility] Start: 08-25-2023 End: 08-25-[address] Angelica Sandy Work Phone: [facility] Work Phone: Start: 08-25-2023 End: 08-25-[address] [facility] Start: 08-25-2023 End: 08-25-[address] Angelica Sandy Work Phone: [facility] Work Phone: Start: 04-14-2023 End: 04-14-[address] Angelica Sandy Work Phone: [facility] Work Phone: Start: 04-14-2023 End: 04-14-[address] [facility] Start: 04-02-2023 End: 04-02-2023 Emergency department patient [facility]: Start: 03-25-2023 End: 03-25-[address] Angelica Sandy Work Phone: [facility] [place] Work Phone: Start: 03-16-2023 End: 03-16-[address] Angelica Sandy Work Phone: [facility] Work Phone: Start: 03-16-2023 End: 03-16-[address] Angelica Sandy Work Phone: [facility] Work Phone: Start: 03-15-2023 End: 03-15-[address] Angelica Sandy Work Phone: [facility] Work Phone: Start: 02-17-2022 Non-patient / Non-visit Dr. Renata Nixon Work Phone: [facility] Start: 02-17-2022 End: 02-17-[address] Beny Nixon Work Phone: [facility] Work Phone: Start: 02-17-2022 End: 02-17-[address] Beny Nixon Work Phone: [facility] Start: 01-20-2022 End: 01-20-[address] Beny Nixon Work Phone: [facility]/Neurology Start: 01-20-2022 Non-patient / Non-visit Dr. Renata Nixon Work Phone: [facility] Start: 01-19-2022 End: 01-19-[address] Beny Nixon Work Phone: [facility] [place] Start: 10-02-2021 End: 10-02-[address] Beny Nixon Work Phone: [facility]Laboratory Start: 04-21-2021 End: 04-21-2021 Patient encounter procedure BENY NIXON MD [facility] Procedures Date Procedure Procedure Detail Performing Clinician Start: 11-08-2024 X-ray of foot, three or more views Dr. Angelica Sandy MD Work Phone: Start: 11-08-2024 Prostate specific an tigen measurement Dr. Angelica Sandy MD Work Phone: Comment on above: This test was perfor med using the [employer] tPSA method. Measured values of a patient sample can vary depending on the testing procedure used. PSA values determined on patient samples by different testing procedures cannot be used interchangeably. If there is a change in PSA assays while monitoring therapy, sequential testing should be performed to confirm baseline values. Start: 11-08-2024 Vitamin D, 25-hydrox y measurement Dr. Angelica Sandy MD Work Phone: Comment on above: Vitamin D StatusDefi ciency: <20 ng/mL (50nmol/L)Insufficiency: 20-30 ng/mL (50-75 nmol/L)Sufficiency: 30-100 ng/mL (75-250 nmol/L)Toxicity: >100 ng/mL (>250 nmol/L) Start: 04-02-2023 Plain chest X-ray Dr. Radha Sandy Work Phone: Start: 04-02-2023 SARS-CoV-2 & FLU Ant igen (Rapid) Dr. Angelica Sandy Work Phone: Start: 03-15-2023 Plain x-ray of hand Dr. Angelica Sandy Work Phone: Start: 02-17-2022 Radionuclide imaging of perfusion of myocardium under exercise stress Dr. Beny Nixon Work Phone: Start: 01-20-2022 Plain chest X-ray Dr. Martinez Nixon Work Phone: Start: 08-28-2018 Prostate biopsy samp le (specimen) BENY NIXON MD Start: 07-30-2012 Cyst of eyelid (disorder) BENY NIXON MD Plan of Treatment Date Care Activity Detail Author Start: 11-13-2024 Patient referral [facility] Work Phone: Start: 04-02-2023 [facility] Evaluation of diagno stic study results [facility] Patient Education ED Dyspnea ED Alcohol Abuse [facility] Work Phone: Patient referral [facility] Work Phone: Radionuclide imaging of perfusion of myocardium under exercise stress [facility] Work Phone: T4 free measurement [facility] Thyroid stimulating hormone measurement [facility] Triiodothyronine, fr ee measurement [facility] Immunizations Immunization Date Immunization Notes Care Provider Fa cility 03-29-2020 influenza virus vaccine, unspecified formulation BENY NIXON MD [facility] Comment on above: Result Comment: [facility]24-2019 influenza, injectabl e, quadrivalent, preservative free; Translations: [Fluarix PF Quadrivalent ] BENY NIXON MD [facility] 04-24-2019 pneumococcal conjuga te vaccine, 13 valent; Translations: [Prevnar 13] BENY NIXON MD [facility] 03-31-2017 influenza virus vaccine, unspecified formulation BENY NIXON MD [facility] 04-29-2015 influenza virus vaccine, unspecified formulation BENY NIXON MD [facility] Payers Date Payer Category Payer Self-pay [id number] 2023 Medicare [id number] Unknown [id number] Unknown [id number] Unknown [id number] Unknown [id number] Social History Date Type Detail Facility Start: 04-24-2019 Never smoked t obacco (finding) [facility] Start: 1950 Sex Assigned At Male A [facility] Start: 01-19-2022 End: 08-25-2023 Tobacco smoking status NHIS Unknown if ever smoked [facility] Start: 08-25-2023 Tobacco smoking stat us NHIS Ex-smoker (finding) [facility] Mental Status Date Assessment Result Facility 04-02-2023 Cognitive function Level Of Cons ciousness Awake;Alert;Appropriate [facility] Work Phone: Clinical Notes 11-08-2024 to 11-13-2024 Note Date & Type Note Facility 11-13-2024 Evaluation note Diagnosis Onset Date Resolution Bilateral knee pain acute October 262024 8:27am Palpitations acute November 13 8:27am Right foot pain acute November 13, 2024 8:27am [facility] Work Phone: 1(129) 684-672905-14-2025 Radiology Diagnostic study note [facility] Imaging Services [address] [place] [address] Foot min 3 Views MR#: [id number] Acct: [id number] Name: ROC PERLA Rep #: [id number] : 1950 M 74 From: Marsha Morales MD PCP: Dr. Angelica Sandy MD Status: REG CLI Study:Foot min 3 Views Date of Exam: Exam# [id number] Ordering Dr: Angelica Sandy MD EXAM: XR Right Foot Complete, 3 or More Views CLINICAL INDICATION: RIGHT FOOT PAIN, 4 TH DIGIT, DISTAL PAIN TECHNIQUE: Frontal, lateral and oblique views of the right foot. COMPARISON: No relevant prior studies available. FINDINGS: BONES/JOINTS: Moderate intertarsal degenerative changes. No acute fracture. No dislocation. SOFT TISSUES: Soft tissue swelling. No radiopaque foreign body. RAD/Foot min 3 Views IMPRESSION: Degenerative changes as above. Reading Location: [id number] CC: Dr. 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 [facility] Future Appointments Appointment Date:04/30/2021 07:50:00 AM Scheduled Provider:BENY NIXON MD Location:[facility] Appointment Type: Wellness Medicare [facility] Evaluation note* Diagnosis Onset Date Resolution Status Chest tightness acute Dyspnea on exertion acute Fatigue acute Osteoarthritis of knees, bilateral acute Skin fissures acute Encounter to establish care noneactive [facility] Work Phone: Evaluation note* Diagnosis Onset Date Resolution Status Gout acute Right hand pain acute [facility] Work Phone: Evaluation note* Diagnosis Onset Date Resolution Status Gout acute Right hand pain acute Dyspnea on exertion acute Gout acute Hyperlipidemia acute Lower urinary tract symptoms (LUTS) acute Right hand pain acute [facility] Work Phone: Evaluation note* Diagnosis Onset Date Resolution Status Gout acute [facility] Work Phone: Evaluation note* Diagnosis Onset Date Resolution Status Admit Date Bilateral knee pain acute October 262024 8:27am Right foot pain acute November 13, 2024 8:27am [facility] Work Phone: Hospital course Narrative No data available for this section [facility] Hospital Discharge instructions No data available for this section [facility] Discharge instructionsAmbulatory Orders* Podiatry Location: None [facility] [place] [employer] Work Phone: Summary Purpose Family History No Family History Records Found Relationship Condition Age at Onset Recorded Date/T christine father Arthritis Unknown Myocardial infarction Unknown Cardiac disease Unknown High blood cholesterol Unknown Disorder of respiratory system Unknown mother Arthritis Unknown Malignant neoplasm of colon Unknown Osteoporosis Unknown Advance Directives No Advanced Directives Records Found Advance Directive Response Recorded Date/ Time Living Will No January 02, 2016 2 :49am Power of Gear Technician No January 02, 2016 2:49am Advance Directive Response Recorded Date/ Time Living Will No March 15, 2023 8:45am Power of Gear Technician No February 8:45am Advance Directive Response Recorded Date/ Time Living Will No April 02 4:14pm Power of Gear Technician No April 02 4:14pm Advance Directive Response Recorded Date/ Time Living Will No August 24 8:53am Power of Gear Technician No August 24, 2023 8:53am Advance Directive Response Recorded Date/ Time Living Will No August 24 9:53am Power of Gear Technician No August 24, 2023 9:53am Chief Complaint and Reason for Visit 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 CHEST TIGHTNESS CHEST PAIN/E ORDERS CHEST TIGHTNESS CHEST TIGHTNESS CHEST TIGHTNESS Reason for Visit Chest tightness Dyspnea on exertion Fatigue Osteoarthritis of knees, bilateral Skin fissures Encounter to establish care Chief Complaint RIGHT HAND RM 3 E-ORDER Reason for Visit Gout Right hand pain Chief Complaint RIGHT HAND RM 3 E-ORDER 9 M FU, Gout general illness general illness Reason for Visit Gout Right hand pain Dyspnea on exertion Gout Hyperlipidemia Lower urinary tract symptoms (LUTS) Right hand pain Chief Complaint LT Arm Edema E-ORDER Reason for Visit Gout Chief Complaint Admit Date INT LAB AND RAD November 08, 2024 8:00a m Bilateral Knee Pain, Rt Ft Pain October 8:27am Reason for Visit Admit Date Bilateral knee pain November 13, 2024 8:27a m Right foot pain November 13, 2024 8:27a m Reason for Visit Admit Date Bilateral knee pain November 13, 2024 8:27a m Palpitations November 13, 2024 8:27a m Right foot pain November 13, 2024 8:27a m Additional Source Comments (unrecognized sect ion and content) No Status Records FoundNo Status Records Found INFORMATION SOURCE (unrecogn ized section and content) DATE CREATED AUTHOR 05/01/2021 [facility] ([place]) DATE CREATED AUTHOR AUTHOR'S ORGANIZ ATION 11/14/2024 [facility] Goals (unrecognized section and content) Goals may be documented in a n alternate section Care Teams (unrecognized sec tion and content) Team Status: Active Member Role Status Dates No Primary Care Physician Family Provider Active Dr. Angelica Sandy MD Primary Care Provider Active Team Status: Inactive Member Role Status Dates Dr. Angelica Sandy MD Primary Care Provider, Referri ng Provider Active Reinier Kingston MD Attending Provider Active Team Status: Inactive Member Role Status Dates Dr. Angelica Sandy MD Primary Care Provider Active Dr. Manas Gold MD Attending Provider Active Team Status: Inactive Member Role Status Dates Dr. Angelica Sandy MD Primary Care Provider Active Reinier Kingston MD Attending Provider, Referring Prov ider Active Team Status: Inactive Member Role Status Dates Dr. Angelica Sandy MD Primary Care Provider, Attendi ng Provider Active Team Status: Inactive Member Role Status Dates Dr. Angelica Sandy MD Primary Care Provider Active Dr. Wyatt Johnson DO Attending Provider, Emergency Provider Active Team Status: Inactive Member Role Status Dates Dr. Angelica Sandy MD Primary Care Pro vider, Attending Provider, Referring Provider Active Team Status: Inactive Member Role Status Dates Dr. Angelica Sandy MD Primary Care Provider Active Dr. Abdiaziz Sosa MD Attending Provider, Referr ing Provider Active Team Status: Active Member Role Status Dates Dr. Angelica Sandy MD Primary Care Provider Active Start: November 08, 2024 Dr. Angelica Sandy MD Attending Provider Active Start: November 08, 2024 Dr. Angelica Sandy MD Referring Provider Active Start: November 08, 2024 Alice Hastings Other Provider Active Start: Donis burgess 2024 Team Status: Inactive Member Role Status Dates Dr. Angelica Sandy MD Primary Care Provider Active Start: November 13, 2024 End: November 13, 2024 Dr. Angelica Sandy MD Attending Provider Active Start: November 13, 2024 End: November 13, 2024 Team Status: Inactive Member Role Status Dates Dr. Angelica Sandy MD Primary Care Provider Active Start: November 08, 2024 End: November 08, 2024 Dr. Angelica Sandy MD Attending Provider Active Start: November 08, 2024 End: November 08, 2024 Dr. Angelica Sandy MD Referring Provider Active Start: November 08, 2024 End: November 08, 2024 Alice Hastings Other Provider Active Start: Donis burgess 2024 End: November 08, 2024 FOR RECORDS PERTAINING TO PATIENTS WHO ARE [...] BE BASED ON THE PRIMARY CLINICAL RECORDS. [employer] provides no warranty or guarantee of the accuracy or completeness of information in this document.
== END | disposition home or self-care (01) ==
PROVIDERS: PCP Internal Medicine; Referring Provider Internal Medicine; Visit Provider Internal Medicine
DX: R00.2 Palpitations (principal)
CPT/HCPCS: 93306

== ENCOUNTER → 2025-04-09 | Outpatient (CLI) | payer MEDICARE, SELFPAY ==
--- NOTE | 2025-04-09 09:52 | RAD_ITS ---
PROCEDURE: TOE(S) MIN 2 VIEWS 04/09/2025 REASON FOR EXAM: RIGHT 4TH TOE PAIN, R/O RECENT FX TECHNIQUE: Procedure Code: RADTO Modality: DX Procedure: TOE(S) MIN 2 VIEWS Laterality: Right COMPARISON: 11/08/2024 FINDINGS: There is some soft tissue swelling involving the 4th digit. There is persistent mild erosive change at the proximal lateral corner of the proximal phalanx of the 5th digits similar to the previous study and perhaps arthritic. No erosive change involving the 4th digit. No radiopaque foreign body. RAD/Toe(s) Min 2 Views IMPRESSION: Soft tissue swelling involving the 4th digit without visualized fracture. If i nfection is of concern, consider MRI. Reading Location: [facility]
== END | disposition home or self-care (01) ==
LOC: RAD 09:46
PROVIDERS: PCP Internal Medicine; Referring Provider Internal Medicine; Visit Provider Internal Medicine
DX: N07.0 Hereditary nephropathy, not elsewhere classified with minor glomerular abnormality (principal); M25.561 Pain in right knee; M25.562 Pain in left knee
CPT/HCPCS: 73660